=== PATIENT | female | born 1935 | race Caucasian/White ===

== ENCOUNTER 2017-11-26 09:28 | Inpatient (IN) | payer OTHER, MEDICARE ==
[~2017-11-26] VITALS: Ht 157.5 cm; Wt 111.6 kg
[~2017-11-26 09:28] MED LIST: ALBUTEROL 3 ML3 ML INH; ALBUTEROL SULFAT3 M1 INH/SOL; ALPRAZOLAM0.5 MG PO; APAP; ATROVENT 0.02%2.5 ML INH; ATROVENT HFA 121 PUF INH; Avelox PO; B COMPLEX1 TA1 PO; B12 1MG PE1000 MCG/M IM; CALCIUM600 M1 PO; CARDIZEM 180 M180 MG PO; CIPRO 500MG TA500 MG PO; CIPRO500 M1 PO; ECOTRIN81 MG PO; FISH OIL CONCEN1 SGL PO; HYDROCODON; JANUMET 1000 MG1 TAB PO; JANUMET 500 MG-1 TAB PO; K-DUR 20MEQ TA20 MEQ PO; KLOR-CON20 MEQ PO; LIALDA1.2 GM PO; LINZESS290 MC1 PO; LOPRESSOR 25MG25 MG PO; LOPRESSOR100 MG PO; LOPRESSOR50 MG PO; MAGNESIUM CITR100 MG PO; METAMUCIL3.4 GM/Do2 PO; METOPROLOL TART50 MG PO; MULTIVITAMIN1 TAB PO; Mucinex PO; NEURONTIN100 MG PO; OLANZAPINE5 MG PO; PREDNISONE 10MG10 MG PO; PREDNISONE5 M1 PO; PROTONIX 20MG T20 MG PO; PROTONIX 40MG T40 MG PO; ROBITUSSIN COU237 ML PO; SIMVASTATIN10 MG PO; Senokot S PO; TEMAZEPAM30 MG PO; ZOCOR10 MG PO; ZYPREXA5 MG PO
--- NOTE | 2017-11-26 09:56 | ED DYSPNEA/ASTHMA COMPLAINT ---
History of Present Illness General Chief Complaint: Dyspnea (COPD, CHF, Other) Stated Complaint: SOB Source: patient, family Exam Limitations: no limitations Allergies Coded Allergies: Penicillins (ITCHING 07/15/15) Reconcile Medications Apixaban (Eliquis) 5 MG TABLET 1 TAB PO BID BLOOD THINNER (Reported) Aspirin (Ecotrin*) 81 MG TABLET.DR 1 TAB PO PRN PAIN (Reported) Aspirin (Ecotrin*) 325 MG TABLET.DR 1 TAB PO PRN PAIN (Reported) Calcium Citrate (Unknown Strength) TABLET 630 MG PO QAM SUPPLEMENT (Reported) Diltiazem HCl (Diltiazem 24HR ER) 180 MG CAP.ER.24H 1 CAP PO DAILY HEART/BP ( Reported) Furosemide (Lasix) 20 MG TABLET 1 TAB PO SI DIURETIC (Reported) Furosemide (Lasix) 20 MG TABLET 1 TAB PO SI DIURETIC (Reported) Glipizide (Glipizide ER) 5 MG TAB.ER.24 1 TAB PO DAILY DM (Reported) Hydrocodone/Acetaminophen (Hydrocodon-Acetaminoph 7.5-325) 7.5 MG-325 MG TABLET 1 TAB PO Q6H PRN PAIN (Reported) Ibuprofen (Advil) 200 MG CAPSULE 1 TAB PO PRN PAIN (Reported) Ipratropium/Albuterol Sulfate (Iprat-Albut 0.5-3(2.5) MG/3 Ml) 0.5 MG-3 MG (2.5 MG BASE)/3 ML AMPUL.NEB 1 VIAL INH BID RESP. (Reported) Linaclotide (Linzess) 72 MCG CAPSULE 1 CAP PO DAILY GI (Reported) Magnesium Oxide (Magnesium) 250 MG TABLET 1 TAB PO 0800 SUPPLEMENT (Reported) Metoprolol Tartrate 25 MG TABLET 1 TAB PO BID HEART/BP (Reported) Multivitamin (Multi-Vitamin Daily) 1 EACH TABLET 1 TAB PO DAILY SUPPLEMENT ( Reported) Nitroglycerin 0.4 MG TAB.SUBL 1 TAB SL AD PRN CHEST PAIN (Reported) 1st sign of attack; may repeat every 5 minutes until relief; if pain persists after 3 tablets in 15 minutes, prompt medical att Olanzapine (Zyprexa) 5 MG TABLET 1 TAB PO DAILY MENTAL HEALTH (Reported) Pantoprazole Sodium 40 MG TABLET.DR 1 TAB PO 0930 GI (Reported) Pravastatin Sodium (Pravachol) 20 MG TABLET 1 TAB PO DAILY CHOLESTEROL ( Reported) Sitagliptin Phos/Metformin HCl (Janumet 50-1,000 MG Tablet) 50 MG-1,000 MG TABLET 1 TAB PO BID DM (Reported) Trazodone HCl 100 MG TABLET 1 TAB PO QHS DEPRESSION (Reported) Triage Note: 82 Y/O FEMALE C/O "NOT FEELING GOOD FOR A WHILE". PT REPORTS SOB, WORSE IN EVENING, AND LOSS OF APPETITE. DAUGHTER STATES PT HAS BEEN C/O NAUSEA IN THE EVENINGS "FOR WEEKS, MAYBE 2 OR 3". PT DENIES CURRENT PAIN. STATES SHE FEELS BETTER ONCE OXYGEN IS REPLACED VIA N/C. TAKEN TO ROOM 8 Triage Nurses Notes Reviewed? yes Onset: Abrupt Duration: day(s): (3), constant, continues in ED, getting worse Timing: recent history Severity: moderate, severe Activities at Onset: none Prior Episodes/Possible Cause: frequent episodes Associated Symptoms: weakness LMP (ages 10-50): post menopausal : No Patient currently breastfeeds: No HPI: 82-year-old female history of COPD, atrial fibrillation presents for evaluation of shortness of breath and weakness. Patient reports symptoms have been doing worse over the past few days. States that the shortness breath is worse during the night when she tries to lay back and also with any type of movement. She feels like she is getting weaker unable to ambulate without severe difficulty. She does report cough that is dry. She's been using her inhalers with mild improvement. She is on oxygen at home to a half liters. She also reports her legs are more swollen than usual. She denies chest pain hemoptysis abdominal pain. She does report some nausea but no vomiting subsided decreased appetite. No fevers. (Jose Luis Choudhary) Vital Signs & Intake/Output Vital Signs & Intake/Output Vital Signs Date Time Temp Pulse Resp B/P B/P Pulse O2 O2 Flow FiO2 Mean Ox Delivery Rate 11/26 1457 94 Nasal 3.0L Cannula 11/26 1311 97.9 73 16 124/60 93 Nasal 3.0L Cannula 11/26 1041 97 Nasal 3.0L Cannula 11/26 0950 93 Nasal 3.0L Cannula 11/26 0930 81 18 137/77 80 Room Air (Ed CAMPOS,[facility]) Past History Travel History Traveled to [place] past 21 day No Medical History Any Pertinent Medical History? see below for history Neurological: NONE EENT: NONE Cardiovascular: AFIB,SVT (no anticoagulation) Respiratory: COPD (2 L) Gastrointestinal: upper GI bleed Hepatic: NONE Renal: renal cell carcinoma s/p ablation of tumor Musculoskeletal: chronic back pain, osteoarthritis Psychiatric: [id number] Endocrine: diabetes Blood Disorders: NONE Cancer(s): breast cancer, renal cancer SUPPORT SERVICES TECH/Reproductive: NONE History of MRSA: Yes History of VRE: Yes History of CDIFF: No Surgical History Surgical History: CARDIAC ABLATION COLOSTOMY Psychosocial History Who do you live with Patient/Self Services at Home None What is your primary language Vietnamese Tobacco Use: Quit >30 days ago Family History Family History, If Any: FATHER (Father - [place] at 46.). Hx Contributory? No (Jose Luis Choudhary) Review of Systems Review of Systems Constitutional: Reports: no symptoms. EENTM: Reports: no symptoms. Respiratory: Reports: see HPI, short of breath, wheezing. Cardiovascular: Reports: no symptoms. GI: Reports: nausea. Genitourinary: Reports: no symptoms. Musculoskeletal: Reports: no symptoms. Skin: Reports: no symptoms. Neurological/Psychological: Reports: no symptoms. Hematologic/Endocrine: Reports: no symptoms. Immunologic/Allergic: Reports: no symptoms. All Other Systems: Reviewed and Negative (Jose Luis Choudhary) Physical Exam Physical Exam General Appearance: well developed/nourished, no apparent distress, alert, awake , obese Head: atraumatic, normal appearance Eyes: Bilateral: normal appearance, PERRL, EOMI. Ears, Nose, Throat: hearing grossly normal Neck: normal inspection, supple, full range of motion Respiratory: chest non-tender, no respiratory distress, quiet respiration, decreased breath sounds Cardiovascular: regular rate/rhythm, normal peripheral pulses Peripheral Pulses: 2+ radial (R), 2+ radial (L) Gastrointestinal: soft, non-tender Extremities: normal inspection, normal range of motion, no edema Neurologic/Psych: no motor/sensory deficits, awake, alert, oriented x 3 Skin: intact, normal color, warm/dry Lymphatic: no anterior cervical gregorio Core Measures ACS in differential dx? No CVA/TIA Diagnosis No Sepsis Present: No Sepsis Focused Exam Completed? No (Jose Luis Choudhary) Progress Differential Diagnosis: asthma, AMI, bronchitis, CHF, COPD, pulmonary embolism, pneumonia, pneumothorax, unstable angina Diagnostic Imaging: Viewed by Me: Radiology Read. Discussed w/RAD: Radiology Read. Radiology Impression: PATIENT: MENDEZ FELIX PRESENT AGE: 82 PATIENT ACCOUNT NO: [id number] : 33 LOCATION: [facility] ORDERING PHYSICIAN: Jose Luis REYNOLDS SERVICE DATE: 11/26/17 EXAM TYPE: RAD - XRY-PORTABLE CHEST XRAY EXAMINATION: XR PORTABLE CHEST CLINICAL INFORMATION: Shortness of breath and hypoxia. COMPARISON: 05/19/2017 TECHNIQUE: Portable AP 80 degrees upright view of the chest was obtained. FINDINGS: The cardiac silhouette is enlarged. There is unchanged elevation of the right hemidiaphragm. Lungs and pleural spaces are clear aside from minor linear atelectasis at the right base. IMPRESSION: No acute pulmonary process is seen. DICTATED BY: Saulo Rivera MD DATE/TIME DICTATED:11/26/171006 PHOTOGRAPHIC DEVELOPER AND PRINTER:ELICEO DATE/ TIME TRANSCRIBED:11/26/171006 CONFIDENTIAL, DO NOT COPY WITHOUT APPROPRIATE AUTHORIZATION. <Electronically signed in Other Vendor System> SIGNED BY: Saulo Rivera MD 11/26/17 1012 Initial ED EKG: A FLUTTER RATE CONTROLELD (Varinder REYNOLDS,Jose Luis) Plan of Care: Orders Procedure Date/time Status CBC WITHOUT DIFFERENTIAL 11/27 06 Active BASIC ELECTROLYTES PLUS BUN&CR 11/27 0600 Active Consistent Carbohydrate 2 11/26 D Active Turn and Reposition 11/26 1406 Active Skin Integrity Protocol 11/26 1406 Active Teach/Educate 11/26 1404 Active Pain Treatment and Response 11/26 1404 Active Nutritional Intake, Monitor 11/26 1404 Active Isolation 11/26 1404 Active Patient Care Conference 11/26 1404 Active Activity/Ambulation 11/26 1404 Active Pathway - chart 11/26 1248 Active Patient Data 11/26 1248 Active Code Status 11/26 1248 Active Patient Data 11/26 1216 Active ED Holding Orders 11/26 1121 Active Admit to inpatient 11/26 1121 Active Code Status 11/26 1121 Complete AEROSOL (GEN) 11/26 0954 Complete Add-on Test (ER Only) 11/26 0948 Active Telemetry/Rn Perinatal 11/26 0938 Complete TROPONIN LEVEL 11/26 0938 Complete PARTIAL THROMBOPLASTIN TIME 11/26 0938 Complete PROTHROMBIN TIME 11/26 0938 Complete MAGNESIUM 07/29 0938 Complete D-DIMER 11/26 937 Complete COMPREHENSIVE METABOLIC PANEL 11/26 937 Complete CBC WITHOUT DIFFERENTIAL 11/26 937 Complete B-TYPE NATRIURETIC PEP (BNP) 11/26 937 Complete Intake & Output 11/26 930 Active EKG 11/26 928 Active TRC EVALUATION (GEN) 11/26 UNK Active PEAK FLOW MEASUREMENT (GEN) 11/26 UNK Active OXYGEN SETUP (GEN) 11/26 UNK Active House Staff 11/26 UNK Active Weight 11/26 UNK Active VTE Mechanical Prophylaxis 11/26 UNK Active Vital Signs 11/26 UNK Active Intake & Output 11/26 UNK Complete FingerStick- Glucose 11/26 UNK Active PHARMACY COMMUNICATION FORM 11/26 UNK Active Current Medications Sig/Kevin Start time Last Medication Dose Stop Time Status Admin Aspirin Buffered 81 MG DAILY 11/27 899 AC (Ecotrin) Azithromycin 250 MG DAILY 11/27 899 AC (Zithromax) Calcium/Vitamin D 500 MG DAILY 11/27 899 AC (Oscal-D 500MG (Osyter Shell)) Diltiazem HCl 180 MG DAILY 11/27 899 AC (Cardizem CD) Furosemide 40 MG DAILY 11/27 899 AC (Lasix) Magnesium Oxide 400 MG DAILY 11/27 899 AC (Mag-Ox) Multivitamins 1 TAB DAILY 11/27 899 AC Therapeutic (Theragran-M Vitamins Tabs) Olanzapine 5 MG DAILY 11/27 899 AC (Zyprexa) Pravastatin Sodium 20 MG DAILY 11/27 899 AC (Pravachol) Omeprazole 40 MG DAILY AC 11/27 699 AC (Prilosec) Linaclotide 145 MCG DAILY@0600 11/27 599 AC (Linzess) Methylprednisolone 40 MG Q8 11/27 599 AC (Solumedrol) 11/30 2200 Apixaban 5 MG BID 11/26 2099 AC (Eliquis) Ipratropium [place] 2.5 ML BID 11/26 2099 AC (Atrovent) Metoprolol Tartrate 25 MG BID 11/26 2099 AC (Lopressor) Trazodone HCl 100 MG AT BEDTIME 11/26 2099 AC (Desyrel) Insulin Aspart 0 TIDAC 11/26 1700 AC (NovoLOG) Furosemide 20 MG 1630 11/26 1630 AC 11/26 (Lasix) 1601 Acetaminophen 650 MG Q6P PRN 11/26 1300 AC (Tylenol) Hydrocodone Bitart/ 1 TAB Q6P PRN 11/26 1300 AC Acetaminophen (Vicodin) Nitroglycerin 0.4 MG .EVERY 5 MIN PRN 11/26 1300 AC (Nitrostat) Non-Formulary 0 SEE ADMIN CRITERIA 11/26 1300 CAN Medication (NON FORMULARY) Laboratory Tests 11/26/17 1000: Anion Gap 10, Estimated GFR 53 L, BUN/Creatinine Ratio 10.0, Glucose 136 H, Calcium 8.3 L, Magnesium 1.5 L, Total Bilirubin 0.3, AST 22, ALT 32, Alkaline Phosphatase 58, Troponin I < 0.01, Fbh-D-Aaszinvnuwc Pept 778 H, Total Protein 5.8 L, Albumin 3.2 L, Globulin 2.6, Albumin/Globulin Ratio 1.2, PT 12.8 H, INR 1.17, APTT 34, D-Dimer High Sensitivty 312 H, CBC w Diff NO MAN DIFF REQ, RBC 4.11 L, MCV 89.2, MCH 29.1, MCHC 32.7 L, RDW 15.2 H, MPV 7.9, Gran % 68.7 , Lymphocytes % 21.0, Monocytes % 8.7, Eosinophils % 1.3, Basophils % 0.3, Absolute Granulocytes 3.1, Absolute Lymphocytes 1.0 L, Absolute Monocytes 0.4, Absolute Eosinophils 0.1, Absolute Basophils 0 Patient is here shortness of breath and weakness. She has a history of COPD. Her oxygen saturation at triage was 80% on room air. She usually requires 2-1/2 L is currently requiring 4 to maintain an oxygen saturation of 91%. She also has lower extremity edema. She becomes dyspneic on any type of exertion. DuoNeb Solu-Medrol Zithromax ordered. Lab work is unremarkable including a negative d-dimer negative troponin and EKG is unchanged. Chest x-ray is clear. Patient will be admitted as she is having an increased oxygen REQUIREMEMNT. Patient will require DuoNeb's, pulmonology, IV antibiotics, IV steroids, oxygen supplementation, serial labs, serial EKGs, case discussed with Dr. VALLES he agrees. (Varinder REYNOLDS,Jose Luis) (Ed CAMPOS,[facility]) Departure Departure Disposition: STILL A PATIENT Condition: Stable Clinical Impression Primary Impression: COPD exacerbation Referrals: Jenelle CAMPOS,Raimundo Manzo (PCP/Family) Departure Forms: Customer Survey General Discharge Information (Jose Luis Choudhary) Admission Note Spoke With: Helder CAMPOS,Rl Documentation of Exam: Documentation of any treatments & extenuating circumstances including Concerns Regarding Discharge (functional status, medication knowledge or non-compliance, living conditions, etc.) that warrant an admission rather than observation: Treatment for hypoxia and oxygen dependence. Multiple breathing treatments, steroids and antibiotics. PA/CATTLE DEALER Co-Sign Statement Statement: ED Attending supervision documentation- [X] I saw and evaluated the patient. I have also reviewed all the pertinent lab results and diagnostic results. I agree with the findings and the plan of care as documented in the PA's/CATTLE DEALER's documentation. [] I have reviewed the ED Record and agree with the PA's/CATTLE DEALER's documentation. [] Additions or exceptions (if any) to the PAs/CATTLE DEALER's note and plan are summarized below: 82-year-old female brought in for shortness of breath. Found to be hypoxic. The patient is on Eliquis because of a flutter which she still has on the EKG. No chest pain reported. The patient will need evaluation for shortness of breath and likely admission because of hypoxia. She is usually oxygen dependent. She has history of chronic lung disease, COPD. Otherwise speaking comfortably and no significant respiratory distress. (Ed CAMPOS,[facility]) Critical Care Note Critical Care Note Critical Care Time: non-applicable (Jose Luis Choudhary)
--- NOTE | 2017-11-26 10:12 | RADIOLOGY REPORT ---
EXAMINATION: XR PORTABLE CHEST CLINICAL INFORMATION: Shortness of breath and hypoxia. COMPARISON: 05/19/2017 TECHNIQUE: Portable AP 80 degrees upright view of the chest was obtained. FINDINGS: The cardiac silhouette is enlarged. There is unchanged elevation of the right hemidiaphragm. Lungs and pleural spaces are clear aside from minor linear atelectasis at the right base. IMPRESSION: No acute pulmonary process is seen.
[2017-11-26 10:17] LABS: ABSOLUTE BASOPHIL COUNT 0 /CUMM (0.0-0.2); ABSOLUTE EOSINOPHIL COUNT 0.1 /CUMM (0.0-0.7); ABSOLUTE GRANULOCYTE CT 3.1 /CUMM (1.4-6.5); ABSOLUTE MONOCYTE COUNT 0.4 /CUMM (0.10-0.60); BASOPHIL % 0.3 % (0.0-2.0); EOSINOPHIL % 1.3 % (0-5); GRANULOCYTE % 68.7 % (42.2-75.2); HEMATOCRIT 36.7 % (37-47); MEAN CORPUSCULAR HGB 29.1 PG (27.0-31.0); MEAN CORPUSCULAR HGB CONC 32.7 G/DL (33.0-37.0); MEAN CORPUSCULAR VOLUME 89.2 FL (81.0-99.0); MEAN PLATELET VOLUME 7.9 FL (7.4-10.4); PLATELET COUNT 194 /CUMM (130-400); RBC DISTRIBUTION WIDTH 15.2 % (11.5-14.5); RED BLOOD CELL CT 4.11 /CUMM (4.20-5.40); WHITE BLOOD CELL COUNT 4.5 /CUMM (4.8-10.8)
[2017-11-26 10:45] LABS: PT 12.8 SEC (9.4-12.5); PTT 34 SEC (25-37)
[2017-11-26] MEDS ORDERED: ELIQUIS5 M1 PO (12:09)
[2017-11-26] MEDS ORDERED: METOPROLOL TART25 M1 PO (12:10)
[2017-11-26] MEDS ORDERED: NITROGLYCERIN0.4 M1 SL (12:10)
[2017-11-26] MEDS ORDERED: DILTIAZEM 24HR180 MG PO (12:11)
[2017-11-26] MEDS ORDERED: LASIX20 M1 PO ×2 (12:13→12:15)
[2017-11-26] MEDS ORDERED: TRAZODONE HCL100 M1 PO (12:15)
[2017-11-26] MEDS ORDERED: ZYPREXA5 M1 PO (12:16)
[2017-11-26] MEDS ORDERED: PANTOPRAZOLE SO40 M1 PO (12:16)
[2017-11-26] MEDS ORDERED: GLIPIZIDE ER5 M1 PO (12:17)
--- NOTE | 2017-11-26 12:17 | History & Physical ---
Scar CAMPOS,[facility] 11/26/17 1217: General Information and HPI History of Present Illness: Ms. Akins is an 82-year-old female with past medical history of atrial fibrillation on apixaban followed by Dr. Diamond, COPD on 2.5 L nasal cannula followed by Dr. Morel, upper GI bleed, renal cell carcinoma, diabetes mellitus, and breast cancer who presents with complaints of shortness of breath. The patient says that for the past week she has been progressively short of breath. She has further noticed gaining some weight and lower extremity edema. She says she has not been taking her furosemide as prescribed because she does not want to get up to go to the bathroom and has trouble getting off the couch. She has home aides that come twice a week but otherwise lives alone. She furthe reports some chest pain that comes and goes and occurs both on exertion and at rest. The episodes are usually sharp and lasts about 20 minutes. She had a recent echocardiogram that was apparently good. She denies any cough, sweats, urinary issues. She is a former smoker, drinks alcohol socially, denies recreational drug abuse. Allergies/Medications Allergies: Coded Allergies: Penicillins (ITCHING 07/15/15) Home Med list Apixaban (Eliquis) 5 MG TABLET 1 TAB PO BID BLOOD THINNER (Reported) Aspirin (Ecotrin*) 81 MG TABLET.DR 1 TAB PO PRN PAIN (Reported) Aspirin (Ecotrin*) 325 MG TABLET.DR 1 TAB PO PRN PAIN (Reported) Calcium Citrate (Unknown Strength) TABLET 630 MG PO QAM SUPPLEMENT (Reported) Diltiazem HCl (Diltiazem 24HR ER) 180 MG CAP.ER.24H 1 CAP PO DAILY HEART/BP ( Reported) Furosemide (Lasix) 20 MG TABLET 1 TAB PO SI DIURETIC (Reported) Furosemide (Lasix) 20 MG TABLET 1 TAB PO SI DIURETIC (Reported) Glipizide (Glipizide ER) 5 MG TAB.ER.24 1 TAB PO DAILY DM (Reported) Hydrocodone/Acetaminophen (Hydrocodon-Acetaminoph 7.5-325) 7.5 MG-325 MG TABLET 1 TAB PO Q6H PRN PAIN (Reported) Ibuprofen (Advil) 200 MG CAPSULE 1 TAB PO PRN PAIN (Reported) Ipratropium/Albuterol Sulfate (Iprat-Albut 0.5-3(2.5) MG/3 Ml) 0.5 MG-3 MG (2.5 MG BASE)/3 ML AMPUL.NEB 1 VIAL INH BID RESP. (Reported) Linaclotide (Linzess) 72 MCG CAPSULE 1 CAP PO DAILY GI (Reported) Magnesium Oxide (Magnesium) 250 MG TABLET 1 TAB PO 0800 SUPPLEMENT (Reported) Metoprolol Tartrate 25 MG TABLET 1 TAB PO BID HEART/BP (Reported) Multivitamin (Multi-Vitamin Daily) 1 EACH TABLET 1 TAB PO DAILY SUPPLEMENT ( Reported) Nitroglycerin 0.4 MG TAB.SUBL 1 TAB SL AD PRN CHEST PAIN (Reported) 1st sign of attack; may repeat every 5 minutes until relief; if pain persists after 3 tablets in 15 minutes, prompt medical att Olanzapine (Zyprexa) 5 MG TABLET 1 TAB PO DAILY MENTAL HEALTH (Reported) Pantoprazole Sodium 40 MG TABLET.DR 1 TAB PO 0930 GI (Reported) Pravastatin Sodium (Pravachol) 20 MG TABLET 1 TAB PO DAILY CHOLESTEROL ( Reported) Sitagliptin Phos/Metformin HCl (Janumet 50-1,000 MG Tablet) 50 MG-1,000 MG TABLET 1 TAB PO BID DM (Reported) Trazodone HCl 100 MG TABLET 1 TAB PO QHS DEPRESSION (Reported) Past History Travel History Traveled to [place] past 21 day No Medical History Neurological: NONE EENT: NONE Cardiovascular: AFIB,SVT (no anticoagulation) Respiratory: COPD (2 L) Gastrointestinal: upper GI bleed Hepatic: NONE Renal: renal cell carcinoma s/p ablation of tumor Musculoskeletal: chronic back pain, osteoarthritis Psychiatric: [id number] Endocrine: diabetes Blood Disorders: NONE Cancer(s): breast cancer, renal cancer SAND SIFTER/Reproductive: NONE History of MRSA: Yes History of VRE: Yes History of CDIFF: No Surgical History Surgical History: CARDIAC ABLATION COLOSTOMY Past Family/Social History Family History Relations & Conditions if any FATHER (Father - [place] at 46.). Psychosocial History Services at Home: None Review of Systems Review of Systems Constitutional: Reports: no symptoms. EENTM: Reports: no symptoms. Cardiovascular: Reports: see HPI. Respiratory: Reports: see HPI. GI: Reports: no symptoms. Genitourinary: Reports: no symptoms. Musculoskeletal: Reports: no symptoms. Skin: Reports: no symptoms. Neurological/Psychological: Reports: no symptoms. Hematologic/Endocrine: Reports: no symptoms. Immunologic/Allergic: Reports: no symptoms. All Other Systems: Reviewed and Negative Exam & Diagnostic Data Last 24 Hrs of Vital Signs/I&O Vital Signs Date Time Temp Pulse Resp B/P B/P Pulse O2 O2 Flow FiO2 Mean Ox Delivery Rate 11/26 1041 97 Nasal 3.0L Cannula 11/26 0950 93 Nasal 3.0L Cannula 11/26 0930 81 18 137/77 80 Room Air Intake & Output 11/26 1600 11/26 0800 11/26 0000 Intake Total Output Total Balance Patient 111.13 kg Weight Weight Reported by Patient Measurement Method Physical Exam General Appearance Alert, Oriented X3, Cooperative, No Acute Distress Cardiovascular Regular Rate Lungs mild crackles Abdomen Normal Bowel Sounds, Soft, No Tenderness, ostomy site [id number] appearing Extremities nonpitting edema bilaterally Last 24 Hrs of Labs/Michael: Laboratory Tests 11/26/17 1000: Anion Gap 10, Estimated GFR 53 L, BUN/Creatinine Ratio 10.0, Glucose 136 H, Calcium 8.3 L, Magnesium 1.5 L, Total Bilirubin 0.3, AST 22, ALT 32, Alkaline Phosphatase 58, Troponin I < 0.01, Hbz-Q-Cycmpbbnabh Pept 778 H, Total Protein 5.8 L, Albumin 3.2 L, Globulin 2.6, Albumin/Globulin Ratio 1.2, PT 12.8 H, INR 1.17, APTT 34, D-Dimer High Sensitivty 312 H, CBC w Diff NO MAN DIFF REQ, RBC 4.11 L, MCV 89.2, MCH 29.1, MCHC 32.7 L, RDW 15.2 H, MPV 7.9, Gran % 68.7 , Lymphocytes % 21.0, Monocytes % 8.7, Eosinophils % 1.3, Basophils % 0.3, Absolute Granulocytes 3.1, Absolute Lymphocytes 1.0 L, Absolute Monocytes 0.4, Absolute Eosinophils 0.1, Absolute Basophils 0 Assessment/Plan Assessment: Ms. Akins is an 82-year-old female with past medical history of atrial fibrillation on apixaban followed by Dr. Diamond, COPD on 2.5 L nasal cannula followed by Dr. Morel, upper GI bleed, renal cell carcinoma, diabetes mellitus, and breast cancer who presents with complaints of shortness of breath. On presentation, vital signs were afebrile, HR 81, RR 18, BP 137/77, saturating 80% on room air.. Laboratories were significant for white blood cell count 4.5, chloride 96, carbon dioxide 34, glucose 136, calcium 8.3, magnesium 1.5, albumin 3.2, BNP 778, LFTs negative, INR 1.17, d-dimer 312. Chest x-ray showed no acute process. She will be admitted to general medicine and treated for the following problems: 1. COPD exacerbation 2. Chronic hypoxemic respiratory failure #COPD exacerbation: Patient presents with shortness of breath with history of COPD followed by Dr. Morel. Chest x-ray does not show any infiltrate but patient may have atypical versus viral infection precipitating an exacerbation. Of note, she was hypoxic off oxygen, which is unsurprising given that she is oxygen dependent. She has also not been taking her furosemide recently, which may exacerbate her pulmonary symptoms. She does not seem to be in acute CHF at this time. -Resume home furosemide -TRC nebs -Methylprednisone 40 mg every 8 hours, taper as necessary -Consider pulmonology consult -Strict ins and outs -Daily weights -Azithromycin -PT consult #Chronic medical problems -Continue other home medications DVT prophylaxis with apixaban Consistent carbohydrate two diet DNR/DNI As Ranked By This Provider Problem List: 1. COPD exacerbation Core Measures/Misc (01/15) Acute Coronary Syndrome ACS Diagnosis: No Congestive Heart Failure Congestive Heart Failure Diagnosis No Cerebrovascular Accident CVA/TIA Diagnosis: No VTE (View Protocol) VTE Risk Factors Age>40 No Mechanical VTE Prophylaxis d/t N/A MechProphylax Ordered No VTE Pharm Prophylaxis d/t NA PharmProphylax ordered Sepsis (View protocol) Sepsis Present: No If YES complete Sepsis Event Note If YES complete Sepsis Event Note Helder CAMPOS,Amir 11/26/17 1610: Core Measures/Misc (01/15) Sepsis (View protocol) If YES complete Sepsis Event Note If YES complete Sepsis Event Note Attending MD Review Statement Attending Statement Attending MD Statement: examined this patient, discuss w/resident/PA/ENGRAVER AUTOMATIC, agreed w/resident/PA/ENGRAVER AUTOMATIC, reviewed EMR data (avail) Attending Assessment/Plan: Ms. Akins is an 82-year-old female with past medical history of atrial fibrillation on apixaban followed by Dr. Diamond, COPD on 2.5 L nasal cannula followed by Dr. Morel, upper GI bleed, renal cell carcinoma, diabetes mellitus, and breast cancer who presents with complaints of shortness of breath. --being tx for COPD exacerbation --f/u Pulm consult
[2017-11-26] MEDS ORDERED: JANUMET 50-1,01 EACH PO (12:18)
[2017-11-26] MEDS ORDERED: HYDROCODON-ACE1 EAC3 PO (12:18)
[2017-11-26] MEDS ORDERED: LINZESS72 MCG PO (12:19)
[2017-11-26] MEDS ORDERED: PRAVACHOL20 M2 PO (12:19)
[2017-11-26] MEDS ORDERED: IPRAT-ALBUT 0.5-3 ML INH (12:20)
[2017-11-26] MEDS ORDERED: ASPIRIN EC325 M2 PO (12:20)
[2017-11-26] MEDS ORDERED: ASPIRIN EC81 M1 PO (12:20)
[2017-11-26] MEDS ORDERED: ADVIL200 M1 PO (12:22)
[2017-11-26] MEDS ORDERED: CALCIUM CITRAT250 M1 PO (12:22)
[2017-11-26] MEDS ORDERED: MULTI-VITAMIN1 EACH PO (12:23)
[2017-11-26] MEDS ORDERED: MAGNESIUM250 M2 PO (12:23)
[2017-11-26 14:00] VITALS: BP 110/70
--- NOTE | 2017-11-26 15:48 | Admission Certification ---
Admission Certification Certification Statement - As attending physician, I certify that at the time of - admission, based on clinical presentation, severity of - symptoms, need for further diagnostic testing and - therapeutic interventions, and risk of adverse outcomes - without in-hospital treatment, in my clinical assessment, - this patient requires an acute hospital stay for a minimum - of two nights or longer. I have also considered psychsocial - factors such as support system, advanced age, financial - issues, cognitive issues, and failed out-patient treatments, - past re-admission history, safety of patient, and lack of - compliance as applicable. Specific rationale supporting this admission is: SOB exacerbation likely due to COPD
[2017-11-26 21:38] VITALS: BP 110/72
[2017-11-27 06:52] VITALS: BP 124/66
--- NOTE | 2017-11-27 08:10 | PN- Housestaff ---
See Addendum Subjective Follow-up For: copd exacerbation Complaints: SOB overnight at 3am Subjective: Patient reports SOB acute episode overnight. She called the RN to bedside and received a breathing treatment. She felt better after this treatment. Denies any sx this morning including fever, chills, n/v/d, chest pain, SOB, abdominal pain. Review of Systems Constitutional: Reports: see HPI. Objective Last 24 Hrs of Vital Signs/I&O Vital Signs Date Time Temp Pulse Resp B/P B/P Pulse O2 O2 Flow FiO2 Mean Ox Delivery Rate 11/27 0927 81 124/66 11/27 0838 91 Nasal 4.0L Cannula 11/27 0652 97.5 81 20 124/66 94 11/27 0337 92 Nasal 4.0L Cannula 11/27 0000 Nasal 4.0L Cannula 11/26 2152 83 110/72 11/26 2138 98.0 83 20 110/72 95 Nasal 3.0L Cannula 11/26 1833 Nasal 4.0L Cannula 11/26 1457 94 Nasal 3.0L Cannula 11/26 1400 98.0 80 20 110/70 94 Nasal 3.0L Cannula 11/26 1311 97.9 73 16 124/60 93 Nasal 3.0L Cannula 11/26 1041 97 Nasal 3.0L Cannula Intake & Output 11/27 1600 11/27 0800 11/27 0000 Intake Total 600 Output Total Balance 600 Intake, Oral 600 Number 1 Bowel Movements Output, Urine Patient 250 lb Weight Weight Bed scale Measurement Method Physical Exam General Appearance: Alert, Oriented X3, Cooperative, No Acute Distress Skin: No Rashes Skin Temp/Moisture Exam: Warm/Dry HEENT: Atraumatic, PERRLA Neck: Supple Cardiovascular: Regular Rate, Normal S1, Normal S2, No Murmurs Lungs: decreased breath sounds left base. Expiratory wheezes throughout. Abdomen: Normal Bowel Sounds, Soft, No Tenderness, stoma in place with bag; pink and viable; stool in bag; no surrounding erythema. Midline healed ex lap scar. Extremities: No Tenderness/Swelling Assessment/Plan Assessment: 82-year-old female with past medical history of atrial fibrillation on apixaban followed by Dr. Diamond, COPD on 2.5 L nasal cannula followed by Dr. Morel, upper GI bleed, renal cell carcinoma, diabetes mellitus, and breast cancer who presents with complaints of shortness of breath. On presentation, vital signs were afebrile, HR 81, RR 18, BP 137/77, saturating 80% on room air.. Laboratories were significant for white blood cell count 4.5, chloride 96, carbon dioxide 34, glucose 136, calcium 8.3, magnesium 1.5, albumin 3.2, BNP 778, LFTs negative, INR 1.17, d-dimer 312. Chest x-ray showed no acute process. She will be admitted to general medicine and treated for the following problems: 1. COPD exacerbation 2. Hypomagnesemia 3. DM #COPD exacerbation: Patient presents with shortness of breath with history of COPD followed by Dr. Morel. Chest x-ray does not show any infiltrate but patient may have atypical versus viral infection precipitating an exacerbation. Of note, she was hypoxic off oxygen, which is unsurprising given that she is oxygen dependent. She has also not been taking her furosemide recently, which may exacerbate her pulmonary symptoms. She does not seem to be in acute CHF at this time. -Lasix 40mg daily IV -TRC nebs -Methylprednisone 40 mg every 8 hours: start PO prednisone 30mg daily today -Dr. Morel following -Strict ins and outs -Insentive Spirometry -Daily weights -Azithromycin: discontinued per Pulm input -PT consult #Hypomagnesemia -monitor and replete #Chronic medical problems -Continue other home medications DVT prophylaxis with apixaban Consistent carbohydrate two diet DNR/DNI Problem List: 1. COPD exacerbation 2. Hypoxia Pain Ratin Pain Location: none Pain Goal: Remain pain free Pain Plan: see a/p Tomorrow's Labs & Rationales: bep magnesium
[2017-11-27 09:24] LABS: ABSOLUTE BASOPHIL COUNT 0 /CUMM (0.0-0.2); ABSOLUTE EOSINOPHIL COUNT 0 /CUMM (0.0-0.7); ABSOLUTE LYMPH COUNT 0.8 /CUMM (1.2-3.4); ABSOLUTE MONOCYTE COUNT 0.3 /CUMM (0.10-0.60); BASOPHIL % 0.2 % (0.0-2.0); EOSINOPHIL % 0 % (0-5); HEMATOCRIT 34.5 % (37-47); MEAN CORPUSCULAR HGB 29.3 PG (27.0-31.0); MEAN CORPUSCULAR VOLUME 88.7 FL (81.0-99.0); MEAN PLATELET VOLUME 8.2 FL (7.4-10.4); PLATELET COUNT 177 /CUMM (130-400); RED BLOOD CELL CT 3.88 /CUMM (4.20-5.40); WHITE BLOOD CELL COUNT 5.2 /CUMM (4.8-10.8)
[2017-11-27 14:49] VITALS: BP 132/70
--- NOTE | 2017-11-27 16:01 | Cons- Pulmonary ---
General Information and HPI Consulting Request Date of Consult: 11/27/17 Requested By: med team History of Present Illness: Ms. Akins is an 82-year-old female with past medical history of atrial fibrillation on apixaban followed by Dr. Diamond, COPD on 2.5 L nasal cannula followed by me as out patient, upper GI bleed, renal cell carcinoma, diabetes mellitus, and breast cancer who presents with complaints of shortness of breath. The patient says that for the past week she has been progressively short of breath. She has further noticed gaining some weight and lower extremity edema. She says she has not been taking her furosemide as prescribed because she does not want to get up to go to the bathroom and has trouble getting off the couch. She has home aides that come twice a week but otherwise lives alone. She further reports some chest pain that comes and goes and occurs both on exertion and at rest. The episodes are usually sharp and lasts about 20 minutes. She had a recent echocardiogram that was apparently good. She denies any cough, sweats, urinary issues. She is a former smoker, drinks alcohol socially, denies recreational drug abuse. Reports: no symptoms. EENTM: Reports: no symptoms. Cardiovascular: Reports: see HPI. Respiratory: Reports: see HPI. GI: Reports: no symptoms. Genitourinary: Reports: no symptoms. Musculoskeletal: Reports: no symptoms. Skin: Reports: no symptoms. Neurological/Psychological: Reports: no symptoms. Hematologic/Endocrine: Reports: no symptoms. Immunologic/Allergic: Reports: no symptoms. All Other Systems: Reviewed and Negative Allergies/Medications Allergies: Coded Allergies: Penicillins (ITCHING 07/15/15) Home Med List: Apixaban (Eliquis) 5 MG TABLET 1 TAB PO BID BLOOD THINNER (Reported) Aspirin (Ecotrin*) 81 MG TABLET.DR 1 TAB PO PRN PAIN (Reported) Aspirin (Ecotrin*) 325 MG TABLET.DR 1 TAB PO PRN PAIN (Reported) Calcium Citrate (Unknown Strength) TABLET 630 MG PO QAM SUPPLEMENT (Reported) Diltiazem HCl (Diltiazem 24HR ER) 180 MG CAP.ER.24H 1 CAP PO DAILY HEART/BP ( Reported) Furosemide (Lasix) 20 MG TABLET 1 TAB PO SI DIURETIC (Reported) Furosemide (Lasix) 20 MG TABLET 1 TAB PO SI DIURETIC (Reported) Glipizide (Glipizide ER) 5 MG TAB.ER.24 1 TAB PO DAILY DM (Reported) Hydrocodone/Acetaminophen (Hydrocodon-Acetaminoph 7.5-325) 7.5 MG-325 MG TABLET 1 TAB PO Q6H PRN PAIN (Reported) Ibuprofen (Advil) 200 MG CAPSULE 1 TAB PO PRN PAIN (Reported) Ipratropium/Albuterol Sulfate (Iprat-Albut 0.5-3(2.5) MG/3 Ml) 0.5 MG-3 MG (2.5 MG BASE)/3 ML AMPUL.NEB 1 VIAL INH BID RESP. (Reported) Linaclotide (Linzess) 72 MCG CAPSULE 1 CAP PO DAILY GI (Reported) Magnesium Oxide (Magnesium) 250 MG TABLET 1 TAB PO 0800 SUPPLEMENT (Reported) Metoprolol Tartrate 25 MG TABLET 1 TAB PO BID HEART/BP (Reported) Multivitamin (Multi-Vitamin Daily) 1 EACH TABLET 1 TAB PO DAILY SUPPLEMENT ( Reported) Nitroglycerin 0.4 MG TAB.SUBL 1 TAB SL AD PRN CHEST PAIN (Reported) 1st sign of attack; may repeat every 5 minutes until relief; if pain persists after 3 tablets in 15 minutes, prompt medical att Olanzapine (Zyprexa) 5 MG TABLET 1 TAB PO DAILY MENTAL HEALTH (Reported) Pantoprazole Sodium 40 MG TABLET.DR 1 TAB PO 0930 GI (Reported) Pravastatin Sodium (Pravachol) 20 MG TABLET 1 TAB PO DAILY CHOLESTEROL ( Reported) Sitagliptin Phos/Metformin HCl (Janumet 50-1,000 MG Tablet) 50 MG-1,000 MG TABLET 1 TAB PO BID DM (Reported) Trazodone HCl 100 MG TABLET 1 TAB PO QHS DEPRESSION (Reported) Review of Systems Review of Systems Constitutional: Reports: see HPI. Past History Travel History Traveled to [place] past 21 day No Medical History Blood Transfusion Hx: Yes Neurological: NONE EENT: NONE Cardiovascular: AFIB,SVT (no anticoagulation) Respiratory: COPD (2 L) Gastrointestinal: diverticulitis, upper GI bleed Hepatic: NONE Renal: renal cell carcinoma s/p ablation of tumor Musculoskeletal: chronic back pain, osteoarthritis Psychiatric: anxiety Endocrine: diabetes Blood Disorders: NONE Cancer(s): breast cancer, renal cancer VERTICAL BORER/Reproductive: NONE Surgical History Surgical History: CARDIAC ABLATION COLOSTOMY Family History Relations & Conditions If Any: FATHER (Father - [place] at 46.). Psychosocial History Where Do You Live? Home Services at Home: None Smoking Status: Former Smoker Exam & Diagnostic Data Last 24 Hrs of Vital Signs/I&O Vital Signs Date Time Temp Pulse Resp B/P B/P Pulse O2 O2 Flow FiO2 Mean Ox Delivery Rate 11/27 1449 98.7 75 20 132/70 97 Nasal 4.0L Cannula 11/27 0927 81 124/66 11/27 0838 91 Nasal 4.0L Cannula 11/27 0800 95 Nasal 4.0L Cannula 11/27 0652 97.5 81 20 124/66 94 11/27 0337 92 Nasal 4.0L Cannula 11/27 0000 Nasal 4.0L Cannula 11/26 2152 83 110/72 11/26 2138 98.0 83 20 11072 95 Nasal 3.0L Cannula 11/26 1833 Nasal 4.0L Cannula Intake & Output 11/27 1600 11/27 0800 11/27 0000 Intake Total 800 600 Output Total 100 Balance 700 600 Intake, Oral 800 600 Number 1 Bowel Movements Output, Stool 100 Output, Urine Patient 250 lb Weight Weight Bed scale Measurement Method Last 48 Hrs of Labs/Michael: Laboratory Tests 11/27/17 0612: Anion Gap 10, Estimated GFR > 60, BUN/Creatinine Ratio 18.8, CBC w Diff NO MAN DIFF REQ, RBC 3.88 L, MCV 88.7, MCH 29.3, MCHC 33.0, RDW 15.0 H, MPV 8.2, Gran % 78.0 H, Lymphocytes % 15.8 L, Monocytes % 6.0, Eosinophils % 0, Basophils % 0.2, Absolute Granulocytes 4.0, Absolute Lymphocytes 0.8 L, Absolute Monocytes 0.3, Absolute Eosinophils 0, Absolute Basophils 0 11/26/17 1000: Anion Gap 10, Estimated GFR 53 L, BUN/Creatinine Ratio 10.0, Glucose 136 H, Calcium 8.3 L, Magnesium 1.5 L, Total Bilirubin 0.3, AST 22, ALT 32, Alkaline Phosphatase 58, Troponin I < 0.01, Emp-Q-Absicpusaom Pept 778 H, Total Protein 5.8 L, Albumin 3.2 L, Globulin 2.6, Albumin/Globulin Ratio 1.2, PT 12.8 H, INR 1.17, APTT 34, D-Dimer High Sensitivty 312 H, CBC w Diff NO MAN DIFF REQ, RBC 4.11 L, MCV 89.2, MCH 29.1, MCHC 32.7 L, RDW 15.2 H, MPV 7.9, Gran % 68.7 , Lymphocytes % 21.0, Monocytes % 8.7, Eosinophils % 1.3, Basophils % 0.3, Absolute Granulocytes 3.1, Absolute Lymphocytes 1.0 L, Absolute Monocytes 0.4, Absolute Eosinophils 0.1, Absolute Basophils 0 Assessment/Plan Impression/Plan: General Appearance Alert, Oriented X3, Cooperative, No Acute Distress Cardiovascular Regular Rate Lungs mild crackles Abdomen Normal Bowel Sounds, Soft, No Tenderness, ostomy site [id number] appearing Extremities nonpitting edema bilaterally Ms. Akins is an 82-year-old female with past medical history of atrial fibrillation on apixaban followed by Dr. Abdi, chronic obstructive and restrictive lung disease on 2.5 L nasal cannula, chronic rt middle lobe syndrome , Mild ILD, history of upper GI bleed, renal cell carcinoma, diabetes mellitus, and h/o stage 1 breast cancer who presents with complaints of shortness of breath, in the setting of stopping her lasix lately * Mod to severe copd with mild ild with chronic rt middle lobe syndrome, now with minimal wheezing today, and her recent deterioration is prob due to stopping her lasix. No evidence of sig copde * Chronic pedal edema with chronic corpulmonale with mild fluid overload * Significant history of hiatal hernia esophageal diverticulum with chronic right middle lobe syndrome with significant aspiration on and off/ Pt is probably having sig gerd with recurrent aspirations, * Previous history of breast cancers, renal cell carcinoma status post ablation no evidence of recurrence so far * Diabetes/hypertension/hyperlipidemia/anxiety stable * GERD, chronic pain syndrome, significant malunion of the lower extremities * Previous history of volvulus requiring partial colectomy colostomy with ventral hernia with chronic abdominal discomfort * Chronic recurrent pna in the right side with mild bronchial narrowing with previous chest ct RECOMMENDATION Resume lasix and use IV lasix daily 40 mg and keep potassium more than 4 Dc iv steroids and start po prednisone 30 mg daily DC abx Cont out pt meds PRN nebs Incentive spirometry Follow sugars slolwy Cont anticoag and calcium channel valorie Cont mag Keep hob up Check echo WIll follow closely Consult Acknowledgment - Thank you for your consult request.
[2017-11-27 22:26] VITALS: BP 134/62
--- NOTE | 2017-11-28 05:32 | PN- Housestaff ---
See Addendum Fredy Obrien 11/28/17 0531: Subjective Follow-up For: Shortness of breath COPD exacerbation Pulmonary congestion due to noncompliance with furosemide Subjective: She complained about frequent urination during the night which caused poor sleep. Review of Systems Constitutional: Reports: see HPI. EENTM: Reports: no symptoms. Cardiovascular: Reports: edema. Respiratory: Reports: short of breath, wheezing. Objective Last 24 Hrs of Vital Signs/I&O Vital Signs Date Time Temp Pulse Resp B/P B/P Pulse O2 O2 Flow FiO2 Mean Ox Delivery Rate 11/29 1332 98.6 79 18 100/60 98 Nasal 3.0L Cannula 11/29 0924 78 132/78 11/29 0850 94 Nasal 4.0L Cannula 11/29 0800 22 95 Nasal 3.0L Cannula 11/29 0800 95 Nasal 3.0L Cannula 11/29 0643 98.2 80 20 130/80 95 Room Air 11/29 0000 95 Nasal 3.0L Cannula 11/28 2114 98.5 87 18 118/68 95 Nasal 4.0L Cannula 11/28 2113 87 118/68 11/28 1943 94 Nasal 4.0L Cannula 11/28 1600 Nasal 3.0L Cannula Intake & Output 11/29 1600 11/29 0800 08 0000 Intake Total 850 480 480 Output Total 805 550 10 Balance 45 -70 470 Intake, IV 50 Intake, Oral 800 480 480 Number 0 0 Bowel Movements Output, Stool 30 10 Output, Urine 775 550 Patient 245 lb Weight Weight Bed scale Measurement Method Physical Exam General Appearance: Alert, Oriented X3, Cooperative, No Acute Distress Skin: No Rashes Skin Temp/Moisture Exam: Warm/Dry Sepsis Skin Exam (color): Normal for Ethnicity HEENT: Atraumatic Neck: Supple, No LAD Cardiovascular: Regular Rate, Normal S1, Normal S2 Lungs: Diminished BS with mild expiratory wheeze Abdomen: Normal Bowel Sounds, Soft, No Tenderness Neurological: Normal Speech Extremities: 2+ pitting edema, in lower extermitis Vascular: Normal Pulses, Pulses Symmetrical Assessment/Plan Assessment: Impression/Plan: COPD exacerbation: Comparing to yesterday the patient is clinically improved. Plan is to continue TRC nebulizers and prednisone Acute on chronic hypoxic respiratory failure: She still needs more oxygen than her home baseline (4L) CHF/cor pulmonale: Lower extremity edema and bibasilar crackles are decreased with Lasix, apparently the patient is not compliant with diuretics because she has to use the bathroom frequently. Plan is to give 1 single dose of Lasix 40 mg in the morning and follow-up with respiration, daily weights, intake and output, fluid balance Diabetes mellitus: She is diabetic and is taking steroids, she has high blood sugars Sliding scale insulin, Accu-Cheks, Deconditioning: Since the patient has multiple medical problems, she needs physical therapy consult Problem List: 1. Acute respiratory failure with hypoxia 2. COPD (chronic obstructive pulmonary disease) 3. GERD (gastroesophageal reflux disease) 4. Diabetes mellitus 5. Colostomy 6. Renal neoplasm Pain Ratin Pain Location: NA Pain Goal: Remain pain free (NA) Pain Plan: NA Tomorrow's Labs & Rationales: BUCK Thurston MD,Bernard 11/28/17 1627: Attending MD Review Statement Attending Statement Attending MD Statement: examined this patient, discuss w/resident/PA/COMPOSING MACHINE OPERATOR/TENDER, agreed w/resident/PA/COMPOSING MACHINE OPERATOR/TENDER, reviewed EMR data (avail), discussed with nursing, discussed with case mgmt, amended to note Attending Assessment/Plan: S: The patient feels slightly better today- poor sleep due to urinating frequently post IV Lasix yesterday afternoon. Breathing improved. O: VS: Vital Signs Date Time Temp Pulse Resp B/P B/P Pulse O2 O2 Flow FiO2 Mean Ox Delivery Rate 11/28 1411 97.5 80 20 128/60 93 Nasal 4.0L Cannula 11/28 1007 94 Nasal 3.0L Cannula 11/28 0932 88 134/70 11/28 0833 93 Nasal 4.0L Cannula 11/28 0800 94 Nasal 3.0L Cannula 11/28 0655 98.3 88 20 134/70 98 Nasal 4.0L Cannula 11/28 0000 93 Nasal 4.0L Cannula 11/27 2226 97.8 78 18 134/62 92 Nasal 4.0L Cannula 11/27 1959 134/62 11/27 1905 92 Nasal 4.0L Cannula Intake & Output 11/28 1600 11/28 0800 11/28 0000 Intake Total 400 200 120 Output Total 400 600 50 Balance 0 -400 70 Intake, IV 0 Intake, Oral 400 200 120 Output, Stool 50 Output, Urine 400 600 Patient 246 lb Weight Weight Bed scale Measurement Method Current Medications Sig/Kevin Start time Last Medication Dose Route Stop Time Status Admin Acetaminophen 650 MG Q6P PRN 11/26 1300 AC PO Albuterol Sulfate 3 ML TID 11/26 2100 AC 11/28 INH 1420 Apixaban 5 MG BID 11/26 2100 AC 11/28 PO 0932 Aspirin Buffered 81 MG DAILY 11/27 0900 AC 11/27 PO 0926 Azithromycin 250 MG DAILY 11/27 09 AC 11/28 PO 0932 Calcium/Vitamin D 500 MG DAILY 11/27 09 AC 11/28 PO 0932 Diltiazem HCl 180 MG DAILY 11/27 0900 AC 11/28 PO 0932 Furosemide 40 MG DAILY 11/28 0900 AC 11/28 IV 0942 Furosemide 40 MG .STK-MED ONE 11/27 1630 DC IV 11/27 1631 Hydrocodone Bitart/ 1 TAB Q6P PRN 11/26 1300 AC Acetaminophen PO Insulin Aspart 0 TIDAC 11/26 1700 AC 11/28 SC 1144 Insulin Detemir 10 UNITS BID 11/28 2100 AC SC Ipratropium [place] 2.5 ML TID 11/26 2100 AC 11/28 INH 1424 Linaclotide 145 MCG DAILY@0600 11/27 0600 AC 11/28 PO 0517 Magnesium Oxide 400 MG DAILY 11/27 09 AC 11/28 PO 0932 Methylprednisolone 40 MG Q8 11/27 0600 DC 11/28 IV 11/30 2201 0516 Metoprolol Tartrate 25 MG BID 11/26 2100 AC 11/28 PO 0932 Multivitamins 1 TAB DAILY 11/27 09 AC 11/28 Therapeutic PO 0932 Nitroglycerin 0.4 MG .EVERY 5 MIN PRN 11/26 1300 AC SL Olanzapine 5 MG DAILY 11/27 09 AC 11/28 PO 0932 Omeprazole 40 MG DAILY AC 11/27 07 AC 11/28 PO 0516 Patient Medication 1 ED ONE ONE 11/28 1615 DC Teaching ED 11/28 1616 Pravastatin Sodium 20 MG DAILY 11/27 09 AC 11/28 PO 0932 Prednisone 30 MG DAILY 11/28 0900 AC 11/28 PO 11/30 0901 0944 Trazodone HCl 100 MG AT BEDTIME 11/26 2100 AC 11/27 PO 1953 Physical Exam: HEENT: sebastien- moist mucosa Neck: no JVD Chest: diminished BS with mild expiratory wheeze (decreased since yesterday) Cor: RRR nl S1, S2 w/o murm Abd: BS+, soft, NT Ext: 1+ edema (decreased) Labs: Laboratory Tests 11/28/17 0610: Anion Gap 11, Estimated GFR 60, BUN/Creatinine Ratio 23.3, Magnesium 1.6 11/27/17 0612: Anion Gap 10, Estimated GFR > 60, BUN/Creatinine Ratio 18.8, CBC w Diff NO MAN DIFF REQ, RBC 3.88 L, MCV 88.7, MCH 29.3, MCHC 33.0, RDW 15.0 H, MPV 8.2, Gran % 78.0 H, Lymphocytes % 15.8 L, Monocytes % 6.0, Eosinophils % 0, Basophils % 0.2, Absolute Granulocytes 4.0, Absolute Lymphocytes 0.8 L, Absolute Monocytes 0.3, Absolute Eosinophils 0, Absolute Basophils 0 Impression/Plan: #COPD Exacerbation- clinically improved compared to yesterday. Appreciate pulmonary input (Dr. Morel). Plan: Continue TRC nebs Prednisone #Acute And Chronic Hypoxic Respiratory Failure- still requiring more oxygen than baseline (4L vs 2.5 L at home). #CHF- cor pulmonale- edema decreased post IV Lasix. The patient is non-compliant with meds at home. Plan: IV Lasix 40 mg given this morning- none this evening. Follow I/O's and daily weights. Cardiology input from Dr. Sutton regarding Lasix dose. #Hypomagnesemia - corrected post repletion. Plan: Will monitor. #GERD- on omeprazole. Plan: Continue omeprazole. #Hyperlipidemia- on Pravastatin. Plan: Continue Pravastatin. #DM2- sugars high due to steroids. Plan: Continue glucose checks and sliding scale insulin. Will resume oral agents when discharging. #Deconditioning- due to above medical conditions. Plan: PT consult.
[2017-11-28 06:55] VITALS: BP 134/70
[2017-11-28 14:11] VITALS: BP 128/60
--- NOTE | 2017-11-28 15:32 | PN- Pulmonary ---
Subjective HPI/Critical Care Issues: Doing well Diuresis ongoing stable other mathews Objective Current Medications: Current Medications Sig/Kevin Start time Last Medication Dose Route Stop Time Status Admin Acetaminophen 650 MG Q6P PRN 11/26 1300 AC PO Albuterol Sulfate 3 ML TID 11/26 2100 AC 11/28 INH 1420 Apixaban 5 MG BID 11/26 2100 AC 11/28 PO 0932 Aspirin Buffered 81 MG DAILY 11/27 09 AC 11/27 PO 0926 Azithromycin 250 MG DAILY 11/27 09 AC 11/28 PO 0932 Calcium/Vitamin D 500 MG DAILY 11/27 09 AC 11/28 PO 0932 Diltiazem HCl 180 MG DAILY 11/27 09 AC 11/28 PO 0932 Furosemide 40 MG DAILY 11/28 09 AC 11/28 IV 0942 Furosemide 40 MG .STK-MED ONE 11/27 1630 DC IV 11/27 1631 Furosemide 20 MG ONCE ONE 11/27 1615 DC 11/27 IV 11/27 1616 1706 Furosemide 40 MG DAILY 11/27 09 DC 11/27 PO 0927 Furosemide 20 MG 1630 11/26 1630 DC 11/26 PO 1601 Hydrocodone Bitart/ 1 TAB Q6P PRN 11/26 1300 AC Acetaminophen PO Insulin Aspart 0 TIDAC 11/26 1700 AC 11/28 SC 1144 Ipratropium [place] 2.5 ML TID 11/26 2100 AC 11/28 INH 1424 Linaclotide 145 MCG DAILY@0600 11/27 0600 AC 11/28 PO 0517 Magnesium Oxide 400 MG DAILY 11/27 09 AC 11/28 PO 0932 Methylprednisolone 40 MG Q8 11/27 0600 DC 11/28 IV 11/30 2201 0516 Metoprolol Tartrate 25 MG BID 11/26 2100 AC 11/28 PO 0932 Multivitamins 1 TAB DAILY 11/27 09 AC 11/28 Therapeutic PO 0932 Nitroglycerin 0.4 MG .EVERY 5 MIN PRN 11/26 1300 AC SL Olanzapine 5 MG DAILY 11/27 899 AC 11/28 PO 0932 Omeprazole 40 MG DAILY AC 11/27 0700 AC 11/28 PO 0516 Pravastatin Sodium 20 MG DAILY 11/27 09 AC 11/28 PO 0932 Prednisone 30 MG DAILY 11/28 09 AC 11/28 PO 0944 Trazodone HCl 100 MG AT BEDTIME 11/26 2100 AC 11/27 PO 3 Vital Signs & I&O Last 24 Hrs of Vitals and I&O: Vital Signs Date Time Temp Pulse Resp B/P B/P Pulse O2 O2 Flow FiO2 Mean Ox Delivery Rate 11/28 1411 97.5 80 20 128/60 93 Nasal 4.0L Cannula 11/28 1007 94 Nasal 3.0L Cannula 11/28 0932 88 134/70 11/28 0833 93 Nasal 4.0L Cannula 11/28 0800 94 Nasal 3.0L Cannula 11/28 0655 98.3 88 20 134/70 98 Nasal 4.0L Cannula 11/28 0000 93 Nasal 4.0L Cannula 11/27 2226 97.8 78 18 134/62 92 Nasal 4.0L Cannula 11/27 1959 134/62 11/27 1905 92 Nasal 4.0L Cannula 11/27 1559 Nasal 4.0L Cannula Intake & Output 11/28 1600 11/28 0800 11/28 0000 Intake Total 400 200 120 Output Total 400 600 50 Balance 0 -400 70 Intake, IV 0 Intake, Oral 400 200 120 Output, Stool 50 Output, Urine 400 600 Patient 246 lb Weight Weight Bed scale Measurement Method Impression/Plan Impression/Plan Impression/Plan: General Appearance Alert, Oriented X3, Cooperative, No Acute Distress Cardiovascular Regular Rate Lungs mild crackles Abdomen Normal Bowel Sounds, Soft, No Tenderness, ostomy site [id number] appearing Extremities nonpitting edema bilaterally Ms. Akins is an 82-year-old female with past medical history of atrial fibrillation on apixaban followed by Dr. Abdi, chronic obstructive and restrictive lung disease on 2.5 L nasal cannula, chronic rt middle lobe syndrome , Mild ILD, history of upper GI bleed, renal cell carcinoma, diabetes mellitus, and h/o stage 1 breast cancer who presents with complaints of shortness of breath, in the setting of stopping her lasix lately * Mod to severe copd with mild ild with chronic rt middle lobe syndrome, now with minimal wheezing today, and her recent deterioration is prob due to stopping her lasix. No evidence of sig copde * Chronic pedal edema with chronic corpulmonale with mild fluid overload * Significant history of hiatal hernia esophageal diverticulum with chronic right middle lobe syndrome with significant aspiration on and off/ Pt is probably having sig gerd with recurrent aspirations, * Previous history of breast cancers, renal cell carcinoma status post ablation no evidence of recurrence so far * Diabetes/hypertension/hyperlipidemia/anxiety stable * GERD, chronic pain syndrome, significant malunion of the lower extremities * Previous history of volvulus requiring partial colectomy colostomy with ventral hernia with chronic abdominal discomfort * Chronic recurrent pna in the right side with mild bronchial narrowing with previous chest ct RECOMMENDATION lasix daily 40 mg and keep potassium more than 4 po prednisone 30 mg daily for 4 days and dc Cont out pt meds PRN nebs Incentive spirometry Follow sugars slolwy Cont anticoag and calcium channel valorie Cont mag Keep hob up Check echo WIll follow closely
[2017-11-28 21:14] VITALS: BP 118/68
[2017-11-29 06:43] VITALS: BP 130/80
--- NOTE | 2017-11-29 06:46 | PN- Housestaff ---
See Addendum Subjective Follow-up For: COPD exacerbation Acute on chronic hypoxemic respiratory failure Complaints: frequent urination and poor sleep Subjective: She reported that she had to go to the bathroom every 1 hour last night for urination, she mentioned that her ileostomy bag was changed daily to admission both in the hospital has not been changed and there was nothing in the bag but gas. She mentioned that her respiration is better with less shortness of breath. Review of Systems Constitutional: Reports: no symptoms, see HPI. Objective Last 24 Hrs of Vital Signs/I&O Vital Signs Date Time Temp Pulse Resp B/P B/P Pulse O2 O2 Flow FiO2 Mean Ox Delivery Rate 11/29 0924 78 132/78 11/29 0850 94 Nasal 4.0L Cannula 11/29 08 22 95 Nasal 3.0L Cannula 11/29 0800 95 Nasal 3.0L Cannula 11/29 0643 98.2 80 20 130/80 95 Room Air 11/29 0000 95 Nasal 3.0L Cannula 11/28 2114 98.5 87 18 118/68 95 Nasal 4.0L Cannula 11/28 2113 87 118/68 11/28 1943 94 Nasal 4.0L Cannula 11/28 1600 Nasal 3.0L Cannula 11/28 1411 97.5 80 20 128/60 93 Nasal 4.0L Cannula Intake & Output 11/29 1600 11/29 0800 11/29 0000 Intake Total 480 480 Output Total 550 10 Balance -70 470 Intake, Oral 480 480 Number 0 Bowel Movements Output, Stool 10 Output, Urine 550 Patient 245 lb Weight Weight Bed scale Measurement Method Physical Exam General Appearance: Alert, Oriented X3, Cooperative, No Acute Distress Skin: No Rashes, No Breakdown Skin Temp/Moisture Exam: Warm/Dry Sepsis Skin Exam (color): Normal for Ethnicity HEENT: Atraumatic, PERRLA Neck: Supple Cardiovascular: Regular Rate, Normal S1, Normal S2 Lungs: Right sided wheeze and basilar crackles Abdomen: Normal Bowel Sounds, Soft, No Tenderness Extremities: Lower extremity bilateral pitting edema 2+ Vascular: Normal Pulses, Pulses Symmetrical Assessment/Plan Assessment: She is an 82-year-old female with past medical history of A. fib on apixaban, COPD on 2.5 O2 at home, diabetes mellitus, who is currently in the hospital with COPD exacerbation pulmonary congestion due to noncompliance with diuretic medication. Physical examination pulmonary findings were similar to yesterday, she received a single dose of 40 mg Lasix yesterday morning and also this morning, she had a fluid balance of -70. Her O2 saturation on room air is 92% with a respiratory rate of 20. I checked the site of her ileostomy there is no redness, swelling, bruising, or discharge. Problem List: 1. COPD exacerbation 2. Diabetes mellitus 3. Colostomy Pain Ratin Pain Location: NA Pain Goal: Remain pain free (NA) Pain Plan: NA Tomorrow's Labs & Rationales: ECHO
--- NOTE | 2017-11-29 12:11 | Cons- Cardiology ---
General Information and HPI Consulting Request Date of Consult: 11/29/17 Requested By: Bernard Thurston MD Reason for Consult: Shortness of breath Source of Information: patient, old records History of Present Illness: This is an 82-year-old female with a past medical history of oxygen dependent COPD/restrictive lung disease, atrial fibrillation on anticoagulation, chronic lower extremity edema on low-dose Lasix, renal cancer, breast cancer, diabetes, obesity, hypertension, and hyperlipidemia who presents with a chief complaint of worsening shortness of breath; not associated with chest pain or palpitations; she did note recent increase in lower extremity edema; she admits she had not been taking her oral diuretic due to frequent urination. Denies any syncope, slurring of speech, visual changes, or focal weakness. Denies subjective fever. Denies any recent bleeding issues. Allergies/Medications Allergies: Coded Allergies: Penicillins (ITCHING 07/15/15) Home Med List: Apixaban (Eliquis) 5 MG TABLET 1 TAB PO BID BLOOD THINNER (Reported) Aspirin (Ecotrin*) 81 MG TABLET.DR 1 TAB PO PRN PAIN (Reported) Aspirin (Ecotrin*) 325 MG TABLET.DR 1 TAB PO PRN PAIN (Reported) Calcium Citrate (Unknown Strength) TABLET 630 MG PO QAM SUPPLEMENT (Reported) Diltiazem HCl (Diltiazem 24HR ER) 180 MG CAP.ER.24H 1 CAP PO DAILY HEART/BP ( Reported) Furosemide (Lasix) 20 MG TABLET 1 TAB PO SI DIURETIC (Reported) Furosemide (Lasix) 20 MG TABLET 1 TAB PO SI DIURETIC (Reported) Glipizide (Glipizide ER) 5 MG TAB.ER.24 1 TAB PO DAILY DM (Reported) Hydrocodone/Acetaminophen (Hydrocodon-Acetaminoph 7.5-325) 7.5 MG-325 MG TABLET 1 TAB PO Q6H PRN PAIN (Reported) Ibuprofen (Advil) 200 MG CAPSULE 1 TAB PO PRN PAIN (Reported) Ipratropium/Albuterol Sulfate (Iprat-Albut 0.5-3(2.5) MG/3 Ml) 0.5 MG-3 MG (2.5 MG BASE)/3 ML AMPUL.NEB 1 VIAL INH BID RESP. (Reported) Linaclotide (Linzess) 72 MCG CAPSULE 1 CAP PO DAILY GI (Reported) Magnesium Oxide (Magnesium) 250 MG TABLET 1 TAB PO 0800 SUPPLEMENT (Reported) Metoprolol Tartrate 25 MG TABLET 1 TAB PO BID HEART/BP (Reported) Multivitamin (Multi-Vitamin Daily) 1 EACH TABLET 1 TAB PO DAILY SUPPLEMENT ( Reported) Nitroglycerin 0.4 MG TAB.SUBL 1 TAB SL AD PRN CHEST PAIN (Reported) 1st sign of attack; may repeat every 5 minutes until relief; if pain persists after 3 tablets in 15 minutes, prompt medical att Olanzapine (Zyprexa) 5 MG TABLET 1 TAB PO DAILY MENTAL HEALTH (Reported) Pantoprazole Sodium 40 MG TABLET.DR 1 TAB PO 0930 GI (Reported) Pravastatin Sodium (Pravachol) 20 MG TABLET 1 TAB PO DAILY CHOLESTEROL ( Reported) Sitagliptin Phos/Metformin HCl (Janumet 50-1,000 MG Tablet) 50 MG-1,000 MG TABLET 1 TAB PO BID DM (Reported) Trazodone HCl 100 MG TABLET 1 TAB PO QHS DEPRESSION (Reported) Current Medications: Current Medications Sig/Kevin Start time Last Medication Dose Route Stop Time Status Admin Acetaminophen 650 MG Q6P PRN 11/26 1300 AC PO Albuterol Sulfate 3 ML TID 11/26 2100 AC 11/29 INH 0904 Apixaban 5 MG BID 11/26 2099 AC 11/29 PO 0924 Aspirin Buffered 81 MG DAILY 11/27 899 AC 11/29 PO 0924 Azithromycin 250 MG DAILY 11/27 899 AC 11/29 PO 0924 Calcium/Vitamin D 500 MG DAILY 11/27 899 AC 11/29 PO 0924 Diltiazem HCl 180 MG DAILY 11/27 899 AC 11/29 PO 0924 Furosemide 40 MG DAILY 11/28 899 AC 11/29 IV 0923 Hydrocodone Bitart/ 1 TAB Q6P PRN 11/26 1300 AC Acetaminophen PO Insulin Aspart 0 TIDAC 11/26 1700 AC 11/29 SC 0923 Insulin Detemir 10 UNITS BID 11/28 2100 AC 11/29 SC 0923 Ipratropium [place] 2.5 ML TID 11/26 2100 AC 11/29 INH 0904 Linaclotide 145 MCG DAILY@11/27 0600 AC 11/29 PO 0538 Magnesium Oxide 400 MG DAILY 11/27 899 AC 11/29 PO 0924 Metoprolol Tartrate 25 MG BID 11/26 2099 AC 11/29 PO 0924 Multivitamins 1 TAB DAILY 11/27 09 AC 11/29 Therapeutic PO 0924 Nitroglycerin 0.4 MG .EVERY 5 MIN PRN 11/26 1300 AC SL Olanzapine 5 MG DAILY 11/27 09 AC 11/29 PO 0924 Omeprazole 40 MG DAILY AC 11/27 07 AC 11/29 PO 0538 Patient Medication 1 ED ONE ONE 11/28 1615 DC 11/28 Teaching ED 11/28 1616 1658 Pravastatin Sodium 20 MG DAILY 11/27 899 AC 11/29 PO 0924 Prednisone 30 MG DAILY 11/28 09 AC 11/29 PO 11/30 0901 0924 Trazodone HCl 100 MG AT BEDTIME 11/26 2100 AC 11/28 PO 2113 Review of Systems Review of Systems: Review of systems as per HPI. The remainder of a 10 point review of systems was reviewed and was otherwise negative. Past History Travel History Traveled to [place] past 21 day No Medical History Blood Transfusion Hx: Yes Neurological: NONE EENT: NONE Cardiovascular: AFIB,SVT (no anticoagulation) Respiratory: COPD (2 L) Gastrointestinal: diverticulitis, upper GI bleed Hepatic: NONE Renal: renal cell carcinoma s/p ablation of tumor Musculoskeletal: chronic back pain, osteoarthritis Psychiatric: anxiety Endocrine: diabetes Blood Disorders: NONE Cancer(s): breast cancer, renal cancer DETECTIVE PRECINCT/Reproductive: NONE Surgical History Surgical History: CARDIAC ABLATION COLOSTOMY Family History Relations & Conditions If Any: FATHER (Father - [place] at 46.). Psychosocial History Where Do You Live? Home Services at Home: None Smoking Status: Former Smoker Exam & Diagnostic Data Vital Signs and I&O Vital Signs Date Time Temp Pulse Resp B/P B/P Pulse O2 O2 Flow FiO2 Mean Ox Delivery Rate 11/30 923 78 132/78 11/29 0850 94 Nasal 4.0L Cannula 11/30 799 22 95 Nasal 3.0L Cannula 11/29 08 95 Nasal 3.0L Cannula 11/29 0643 98.2 80 20 130/80 95 Room Air 11/29 0000 95 Nasal 3.0L Cannula 11/28 2113 98.5 87 18 118/68 95 Nasal 4.0L Cannula 11/28 2112 87 118/68 11/28 1943 94 Nasal 4.0L Cannula 11/28 1600 Nasal 3.0L Cannula 11/28 1411 97.5 80 20 128/60 93 Nasal 4.0L Cannula Intake & Output 11/29 0811/29 0000 11/28 1600 11/28 0800 11/28 0000 Intake Total 480 480 400 200 120 Output Total 550 10 400 600 50 Balance -70 470 0 -400 70 Intake, IV 0 Intake, Oral 480 480 400 200 120 Number 0 Bowel Movements Output, Stool 10 50 Output, Urine 550 400 600 Patient 245 lb 246 lb Weight Weight Bed scale Bed scale Measurement Method Physical Exam: General: no apparent distress. Alert. Overweight. On nasal cannula oxygen Eyes: No obvious scleral icterus. HEENT: No jugular venous distention or abnormal jugular venous pulsations. Cardiovascular: Normal intensity S1/S2. Irregular Respiratory: Lungs clear to auscultation bilaterally. Abdomen: Soft, nontender with no guarding or rebound tenderness. Musculoskeletal: No clubbing or cyanosis noted; trace edema Skin: warm Neurologic: No gross focal deficits noted Labs/Michael Results: Laboratory Tests 11/29 11/28 0617 0610 Chemistry Sodium (137 - 145 mmol/L) 141 138 Potassium (3.5 - 5.1 mmol/L) 4.1 4.3 Chloride (98 - 107 mmol/L) 92 L 92 L Carbon Dioxide (22 - 30 mmol/L) 39 H 35 H Anion Gap (5 - 16) 10 11 BUN (7 - 17 mg/dL) 28 H 21 H Creatinine (0.5 - 1.0 mg/dL) 0.8 0.9 Estimated GFR (>60 ml/min) > 60 60 BUN/Creatinine Ratio (7 - 25 %) 35.0 H 23.3 Magnesium (1.6 - 2.3 mg/dL) 1.6 Diagnostic Data EKG Results Tracing personally reviewed and shows coarse atrial fibrillation at 74 bpm with normal R-wave progression CXR Results No acute pulmonary process is seen. Other Results Not currently on telemetry Assessment/Plan Assessment/Plan 1. Multifactorial shortness of breath likely with a component of volume overload in the setting of noncompliance with Lasix 2. History of oxygen dependent COPD/restrictive lung disease 3. Persistent atrial fibrillation on chronic anticoagulation 4. Chronic lower extremity edema 5. History of hypertension/hyperlipidemia 6. Obesity The patient is clinically improving. Can likely be transitioned back to oral Lasix and I did discuss the importance of compliance with her medication. Agree with Dr. Morel about obtaining echocardiogram as she has not had a recent study. Heart rate appears well controlled on current regimen and she should be continued on her anticoagulation. Her prior nuclear stress test in my office showed no evidence of ischemia. Her blood pressure is well controlled. Gurdeep Austin MD [facility] Consult Acknowledgment - Thank you for your consult request.
[2017-11-29 13:32] VITALS: BP 100/60
--- NOTE | 2017-11-29 13:39 | PN- Pulmonary ---
Subjective HPI/Critical Care Issues: Doing better Did walk with therapy but feels unsteady Back to baseline Objective Current Medications: Current Medications Sig/Kevin Start time Last Medication Dose Route Stop Time Status Admin Acetaminophen 650 MG Q6P PRN 11/26 1300 AC PO Albuterol Sulfate 3 ML TID 11/26 2100 AC 11/29 INH 0904 Apixaban 5 MG BID 11/26 2100 AC 11/29 PO 0924 Aspirin Buffered 81 MG DAILY 11/27 09 AC 11/29 PO 0924 Azithromycin 250 MG DAILY 11/27 09 AC 11/29 PO 0924 Calcium/Vitamin D 500 MG DAILY 11/27 09 AC 11/29 PO 0924 Diltiazem HCl 180 MG DAILY 11/27 09 AC 11/29 PO 0924 Furosemide 40 MG DAILY 11/28 09 AC 11/29 IV 0923 Hydrocodone Bitart/ 1 TAB Q6P PRN 11/26 1300 AC Acetaminophen PO Insulin Aspart 0 TIDAC 11/26 1700 AC 11/29 SC 1245 Insulin Detemir 10 UNITS BID 11/28 2100 AC 11/29 SC 0923 Ipratropium [place] 2.5 ML TID 11/26 2100 AC 11/29 INH 0904 Linaclotide 145 MCG DAILY@00 11/27 0600 AC 11/29 PO 0538 Magnesium Oxide 400 MG DAILY 11/27 09 AC 11/29 PO 0924 Metoprolol Tartrate 25 MG BID 11/26 2100 AC 11/29 PO 0924 Multivitamins 1 TAB DAILY 11/27 09 AC 11/29 Therapeutic PO 0924 Nitroglycerin 0.4 MG .EVERY 5 MIN PRN 11/26 1300 AC SL Olanzapine 5 MG DAILY 11/27 09 AC 11/29 PO 0924 Omeprazole 40 MG DAILY AC 11/27 07 AC 11/29 PO 0538 Patient Medication 1 ED ONE ONE 11/28 1615 DC 11/28 Teaching ED 11/28 1616 1658 Pravastatin Sodium 20 MG DAILY 11/27 899 AC 11/29 PO 0924 Prednisone 30 MG DAILY 11/28 09 AC 11/29 PO 11/30 0901 0924 Trazodone HCl 100 MG AT BEDTIME 11/26 2100 AC 11/28 PO 2113 Vital Signs & I&O Last 24 Hrs of Vitals and I&O: Vital Signs Date Time Temp Pulse Resp B/P B/P Pulse O2 O2 Flow FiO2 Mean Ox Delivery Rate 08/01 0924 78 132/78 11/29 0850 94 Nasal 4.0L Cannula 11/29 0800 22 95 Nasal 3.0L Cannula 11/29 0800 95 Nasal 3.0L Cannula 11/29 0643 98.2 80 20 130/80 95 Room Air 11/29 0000 95 Nasal 3.0L Cannula 11/28 2114 98.5 87 18 118/68 95 Nasal 4.0L Cannula 11/28 2113 87 118/68 11/28 1943 94 Nasal 4.0L Cannula 11/28 1600 Nasal 3.0L Cannula 11/28 1411 97.5 80 20 128/60 93 Nasal 4.0L Cannula Intake & Output 11/29 1600 11/29 0800 11/29 0000 Intake Total 480 480 Output Total 400 550 10 Balance -400 -70 470 Intake, Oral 480 480 Number 0 Bowel Movements Output, Stool 10 Output, Urine 400 550 Patient 245 lb Weight Weight Bed scale Measurement Method Laboratory Tests 11/29 11/28 0617 0610 Chemistry Sodium (137 - 145 mmol/L) 141 138 Potassium (3.5 - 5.1 mmol/L) 4.1 4.3 Chloride (98 - 107 mmol/L) 92 L 92 L Carbon Dioxide (22 - 30 mmol/L) 39 H 35 H Anion Gap (5 - 16) 10 11 BUN (7 - 17 mg/dL) 28 H 21 H Creatinine (0.5 - 1.0 mg/dL) 0.8 0.9 Estimated GFR (>60 ml/min) > 60 60 BUN/Creatinine Ratio (7 - 25 %) 35.0 H 23.3 Magnesium (1.6 - 2.3 mg/dL) 1.6 Impression/Plan Impression/Plan Impression/Plan: eneral Appearance Alert, Oriented X3, Cooperative, No Acute Distress Cardiovascular Regular Rate Lungs mild crackles Abdomen Normal Bowel Sounds, Soft, No Tenderness, ostomy site [id number] appearing Extremities nonpitting edema bilaterally Ms. Akins is an 82-year-old female with past medical history of atrial fibrillation on apixaban followed by Dr. Abdi, chronic obstructive and restrictive lung disease on 2.5 L nasal cannula, chronic rt middle lobe syndrome , Mild ILD, history of upper GI bleed, renal cell carcinoma, diabetes mellitus, and h/o stage 1 breast cancer who presents with complaints of shortness of breath, in the setting of stopping her lasix lately * Mod to severe copd with mild ild with chronic rt middle lobe syndrome, now with minimal wheezing today, and her recent deterioration is prob due to stopping her lasix. No evidence of sig copde * Chronic pedal edema with chronic corpulmonale with mild fluid overload * Significant history of hiatal hernia esophageal diverticulum with chronic right middle lobe syndrome with significant aspiration on and off/ Pt is probably having sig gerd with recurrent aspirations, * Previous history of breast cancers, renal cell carcinoma status post ablation no evidence of recurrence so far * Diabetes/hypertension/hyperlipidemia/anxiety stable * GERD, chronic pain syndrome, significant malunion of the lower extremities * Previous history of volvulus requiring partial colectomy colostomy with ventral hernia with chronic abdominal discomfort * Chronic recurrent pna in the right side with mild bronchial narrowing with previous chest ct RECOMMENDATION Daily Lasix Prednisone for a few more days and discontinue PRN nebs Incentive spirometry Follow sugars closely Cont anticoag and calcium channel valorie Cont mag Keep hob up Check echo WIll follow closely Okay to be DC'd home or STR depending on PT evaluation
[2017-11-29 22:16] VITALS: BP 124/66
--- NOTE | 2017-11-30 06:31 | PN- Housestaff ---
See Addendum Subjective Follow-up For: COPD exacerbation Acute on chronic hypoxemic respiratory failure Subjective: Examined the patient this morning, she was complaining of urination once an hour. Review of Systems Constitutional: Reports: see HPI. Objective Last 24 Hrs of Vital Signs/I&O Vital Signs Date Time Temp Pulse Resp B/P B/P Pulse O2 O2 Flow FiO2 Mean Ox Delivery Rate 11/30 1418 97.7 80 20 144/89 92 Nasal 3.0L Cannula 11/30 0915 76 130/72 11/30 0809 93 Nasal 3.0L Cannula 11/30 0800 91 Nasal 3.0L Cannula 11/30 0712 Nasal 3.0L Cannula 11/30 0702 97.5 76 24 130/72 90 Nasal 3.0L Cannula 11/30 0000 Nasal 3.0L Cannula 11/29 2216 97.9 94 20 124/66 94 Nasal 3.0L Cannula 11/29 2144 72 124/60 11/29 1830 93 Nasal 3.0L Cannula Intake & Output 11/30 1600 11/30 0800 11/30 0000 Intake Total 800 480 480 Output Total 400 430 Balance 400 480 50 Intake, Oral 800 480 480 Output, Stool 30 Output, Urine 400 400 Patient 249 lb Weight Weight Bed scale Measurement Method Physical Exam General Appearance: Alert, Oriented X3, Cooperative, No Acute Distress Cardiovascular: Regular Rate, Normal S1, Normal S2 Lungs: Rt sided wheeze better than yesterday Assessment/Plan Assessment: An 82-year-old woman with past history significant for A. fib, COPD on home O2, DM, came to the hospital with chief complaint of COPD exacerbation, pulmonary exacerbation. She had fluid balance of -325 cc. She did not have portable oxygen at home when she was admitted although she was on oxygen, she will needed once she is discharged from hospital. mechanical engineering manager has found a bed at [facility] for her and she can be discharged to [facility] tomorrow. COPD exacerbation: The patient has clinically improved. Plan: We will continue with TCR and nebulizers. Acute on chronic hypoxic respiratory failure: Bedside pulse oximetry showed 92% Plan: We will continue oxygen with nasal cannula Congestive heart failure-cor pulmonale: She had a 5 pound weight loss since yesterday. Plan: We will follow-up intakes and outputs and daily weights, she did get p.o. Lasix in the morning on the avoid frequent urination during the night and improve her sleep. Will follow with echo. Hypomagnesemia: We repeated with magnesium, her magnesium level is back to normal. Plan: We will continue to monitor serum level. GERD: Plan: She is taking proton pump inhibitor (omeprazole) Hyperlipidemia: Plan: She is taking pravastatin as she was before. Diabetes mellitus type 2: Her blood sugar is controlled with sliding scale protocol. Plan: We will check blood sugar and control with based on sliding scale. She will be back to her p.o. medication for diabetes once discharged. Problem List: 1. Acute respiratory failure with hypoxia 2. COPD exacerbation 3. Diabetes 4. Renal neoplasm Pain Ratin Pain Location: NA Pain Goal: Remain pain free Pain Plan: NA Tomorrow's Labs & Rationales: BEP
[2017-11-30 07:02] VITALS: BP 130/72
--- NOTE | 2017-11-30 09:59 | PN- Cardiology ---
Subjective Subjective: Patient resting comfortably. Admits to no symptoms of chest pain or unusual shortness of breath. Echocardiogram was not performed yet. Objective Vital Signs and I&Os Vital Signs Date Time Temp Pulse Resp B/P B/P Pulse O2 O2 Flow FiO2 Mean Ox Delivery Rate 11/30 0915 76 130/72 / 0809 93 Nasal 3.0L Cannula 11/30 0712 Nasal 3.0L Cannula 11/30 0702 97.5 76 24 130/72 90 Nasal 3.0L Cannula 11/30 0000 Nasal 3.0L Cannula 11/29 2216 97.9 94 20 124/66 94 Nasal 3.0L Cannula 11/29 2144 72 124/60 11/29 1830 93 Nasal 3.0L Cannula 11/29 1600 Nasal 3.0L Cannula 11/29 1332 98.6 79 18 100/60 98 Nasal 3.0L Cannula Intake & Output 11/30 1600 11/30 0800 11/30 0000 11/29 1600 11/29 0800 11/29 0000 Intake Total 480 480 850 480 480 Output Total 430 1155 550 10 Balance 480 50 -305 -70 470 Intake, IV 50 Intake, Oral 480 480 800 480 480 Number 0 0 Bowel Movements Output, Stool 30 30 10 Output, Urine 400 1125 550 Patient 249 lb 245 lb Weight Weight Bed scale Bed scale Measurement Method Physical Exam: On physical exam patient appeared comfortable Head normocephalic atraumatic Eyes sclera anicteric conjunctiva showed no pallor extraocular muscles were normal Neck no jugular venous distention no thyroid masses no palpable nodes Chest air entry equal bilaterally, scattered rhonchi Heart irregular rhythm with a ventricular rate around 80 Abdomen soft no organomegaly bowel sounds normal Extremities no edema Neurological no gross motor or sensory deficits Current Medications: Current Medications Sig/Kevin Start time Last Medication Dose Route Stop Time Status Admin Acetaminophen 650 MG Q6P PRN 11/26 1300 AC PO Albuterol Sulfate 3 ML TID 11/26 2099 AC 11/30 INH 0807 Apixaban 5 MG BID 11/26 2099 AC 11/30 PO 0916 Aspirin Buffered 81 MG DAILY 11/27 899 AC 11/30 PO 0916 Azithromycin 250 MG DAILY 11/27 899 AC 11/30 PO 0915 Calcium/Vitamin D 500 MG DAILY 11/27 899 AC 11/30 PO 0915 Diltiazem HCl 180 MG DAILY 11/27 899 AC 11/30 PO 0916 Furosemide 60 MG DAILY 11/30 0900 AC 11/30 PO 0915 Furosemide 40 MG DAILY 11/28 0900 DC 11/29 IV 0923 Hydrocodone Bitart/ 1 TAB Q6P PRN 11/26 1300 AC Acetaminophen PO Insulin Aspart 0 TIDAC 11/26 1700 AC 11/29 SC 1705 Insulin Detemir 10 UNITS BID 11/28 2100 AC 11/30 SC 0915 Ipratropium [place] 2.5 ML TID 11/26 2100 AC 11/30 INH 0807 Linaclotide 145 MCG DAILY@0600 11/27 0600 AC 11/30 PO 0537 Magnesium Oxide 400 MG DAILY 11/27 09 AC 11/30 PO 0915 Metoprolol Tartrate 25 MG BID 11/26 2100 AC 11/30 PO 0915 Multivitamins 1 TAB DAILY 11/27 0900 AC 11/30 Therapeutic PO 0915 Nitroglycerin 0.4 MG .EVERY 5 MIN PRN 11/26 1300 AC SL Olanzapine 5 MG DAILY 11/27 09 AC 11/30 PO 0915 Omeprazole 40 MG DAILY AC 11/27 0700 AC 11/30 PO 0537 Pravastatin Sodium 20 MG DAILY 11/27 0900 AC 11/30 PO 0915 Prednisone 30 MG DAILY 11/28 0900 DC 11/30 PO 11/30 0901 0915 Psyllium Hydrophilic 1 PAC DAILY NEEDED 11/29 1600 AC 11/29 Mucilloid PO 1706 Trazodone HCl 100 MG AT BEDTIME 11/26 2100 AC 11/29 PO 2144 Results Last 48 Hrs of Labs/Mics: Laboratory Tests 11/30/17 0615: Anion Gap 6, Estimated GFR 60, BUN/Creatinine Ratio 34.4 H 11/29/17 0617: Anion Gap 10, Estimated GFR > 60, BUN/Creatinine Ratio 35.0 H Assessment/Plan Assessment/Plan In summary this 82-year-old female has a following problems . Multifactorial shortness of breath likely with a component of volume overload in the setting of noncompliance with Lasix 2. History of oxygen dependent COPD/restrictive lung disease 3. Persistent atrial fibrillation on chronic anticoagulation 4. Chronic lower extremity edema 5. History of hypertension/hyperlipidemia 6. Obesity Echocardiogram is pending. Continue telemetry? Not applicable
--- NOTE | 2017-11-30 13:22 | PN- Pulmonary ---
Subjective HPI/Critical Care Issues: Doing better per chart Fast asleep when i saw her and did not wake her Objective Current Medications: Current Medications Sig/Kevin Start time Last Medication Dose Route Stop Time Status Admin Acetaminophen 650 MG Q6P PRN 11/26 1300 AC PO Albuterol Sulfate 3 ML TID 11/26 2100 AC 11/30 INH 0807 Apixaban 5 MG BID 11/26 2100 AC 11/30 PO 0916 Aspirin Buffered 81 MG DAILY 11/27 0900 AC 11/30 PO 0916 Azithromycin 250 MG DAILY 11/27 0900 AC 11/30 PO 0915 Calcium/Vitamin D 500 MG DAILY 11/27 09 AC 11/30 PO 0915 Diltiazem HCl 180 MG DAILY 11/27 09 AC 11/30 PO 0916 Furosemide 60 MG DAILY 11/30 09 AC 11/30 PO 0915 Furosemide 40 MG DAILY 11/28 0900 DC 11/29 IV 0923 Hydrocodone Bitart/ 1 TAB Q6P PRN 11/26 1300 AC Acetaminophen PO Insulin Aspart 0 TIDAC 11/26 1700 AC 11/30 SC 1245 Insulin Detemir 10 UNITS BID 11/28 2100 AC 11/30 SC 0915 Ipratropium [place] 2.5 ML TID 11/26 2100 AC 11/30 INH 0807 Linaclotide 145 MCG DAILY@0600 11/27 0600 AC 11/30 PO 0537 Magnesium Oxide 400 MG DAILY 11/27 0900 AC 11/30 PO 0915 Metoprolol Tartrate 25 MG BID 11/26 2100 AC 11/30 PO 0915 Multivitamins 1 TAB DAILY 11/27 0900 AC 11/30 Therapeutic PO 0915 Nitroglycerin 0.4 MG .EVERY 5 MIN PRN 11/26 1300 AC SL Olanzapine 5 MG DAILY 11/27 0900 AC 11/30 PO 0915 Omeprazole 40 MG DAILY AC 11/27 0700 AC 11/30 PO 0537 Potassium Chloride 20 MEQ ONCE ONE 11/30 1100 DC 11/30 PO 11/30 1101 1245 Potassium Chloride 20 MEQ Q1 11/30 1000 DC 11/30 PO 11/30 1001 1116 Pravastatin Sodium 20 MG DAILY 11/27 0900 AC 11/30 PO 0915 Prednisone 30 MG DAILY 11/28 0900 DC 11/30 PO 11/30 0901 0915 Psyllium Hydrophilic 1 PAC DAILY NEEDED 11/29 1600 AC 11/29 Mucilloid PO 1706 Trazodone HCl 100 MG AT BEDTIME 11/26 2100 AC 11/29 PO 2144 Vital Signs & I&O Last 24 Hrs of Vitals and I&O: Vital Signs Date Time Temp Pulse Resp B/P B/P Pulse O2 O2 Flow FiO2 Mean Ox Delivery Rate 11/30 0815 76 130/72 11/30 0809 93 Nasal 3.0L Cannula 11/30 08 91 Nasal 3.0L Cannula 11/30 0712 Nasal 3.0L Cannula 11/30 0702 97.5 76 24 130/72 90 Nasal 3.0L Cannula 11/30 0000 Nasal 3.0L Cannula 11/29 2216 97.9 94 20 124/66 94 Nasal 3.0L Cannula 11/29 2144 72 124/60 11/29 1830 93 Nasal 3.0L Cannula 11/29 1600 Nasal 3.0L Cannula 11/29 1332 98.6 79 18 100/60 98 Nasal 3.0L Cannula Intake & Output 11/30 1600 11/30 0800 11/30 0000 Intake Total 480 480 Output Total 400 430 Balance -400 480 50 Intake, Oral 480 480 Output, Stool 30 Output, Urine 400 400 Patient 249 lb Weight Weight Bed scale Measurement Method Laboratory Tests 11/30 11/29 0615 0617 Chemistry Sodium (137 - 145 mmol/L) 136 L 141 Potassium (3.5 - 5.1 mmol/L) 3.7 4.1 Chloride (98 - 107 mmol/L) 91 L 92 L Carbon Dioxide (22 - 30 mmol/L) 39 H 39 H Anion Gap (5 - 16) 6 10 BUN (7 - 17 mg/dL) 31 H 28 H Creatinine (0.5 - 1.0 mg/dL) 0.9 0.8 Estimated GFR (>60 ml/min) 60 > 60 BUN/Creatinine Ratio (7 - 25 %) 34.4 H 35.0 H Impression/Plan Impression/Plan Impression/Plan: Impression/Plan: eneral Appearance Alert, Oriented X3, Cooperative, No Acute Distress Cardiovascular Regular Rate Lungs mild crackles Abdomen Normal Bowel Sounds, Soft, No Tenderness, ostomy site [id number] appearing Extremities nonpitting edema bilaterally Ms. Akins is an 82-year-old female with past medical history of atrial fibrillation on apixaban followed by Dr. Abdi, chronic obstructive and restrictive lung disease on 2.5 L nasal cannula, chronic rt middle lobe syndrome , Mild ILD, history of upper GI bleed, renal cell carcinoma, diabetes mellitus, and h/o stage 1 breast cancer who presents with complaints of shortness of breath, in the setting of stopping her lasix lately * Mod to severe copd with mild ild with chronic rt middle lobe syndrome, now with minimal wheezing today, and her recent deterioration is prob due to stopping her lasix. 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
[2017-11-30 14:18] VITALS: BP 144/89
--- NOTE | 2017-11-30 21:41 | Discharge Summary ---
Visit Information Visit Dates Admission Date: 11/26/17 Discharge Date: 12/01/17 Hospital Course Course Attending Physician: Bernard Thurston MD Primary Care Physician: Raimundo Almanzar MD Consulting Request: 1 Consulting Specialty: Cardiology Consulting Physician: Dr. Austin Consulting Request: 2 Consulting Specialty: Pulmonary Disease Consulting Physician: Dr. Morel Hospital Course: Patient is an 82 y/o female with past medical history of atrial fibrillation on apixaban followed by Dr. Diamond, COPD on 2.5 L nasal cannula followed by Dr. Morel, upper GI bleed, renal cell carcinoma, diabetes mellitus, and breast cancer who presents with cheif complaint of progressive shortness of breath. On Admission: Vital signs: afebrile, HR 81, RR 18, BP 137/77, saturating 80% on room air Labs were significant for white blood cell count 4.5, chloride 96, carbon dioxide 34, glucose 136, calcium 8.3, magnesium 1.5, albumin 3.2, BNP 778, LFTs negative, INR 1.17, d-dimer 312 Imaging: Chest x-ray showed no acute process Patient was admitted to the general medicine floor for the followin. Fluid overload due to cor pulmonale and noncompliance 2. COPD Exacerbation 3. Acute on chronic hypoxic respiratory failure due to above 4. Chronic conditions: A.fib, DM, HTN, HLD, Obesity, Chronic lower extremity edema, history of volvulus requiring colostomy, GERD Patient presented with dyspnea and desaturating to the 80s on her home oxygen. Likely multifactorial secondary to COPD exacerbation and fluid overload due to cor pulmonale and noncompliance with lasix. Patient was given a course of steroids, azithromycin and TRC/DuoNeb treatments. Patient was evaluated by pulmonology. Patient was given IV lasix and switched to PO lasix. It appears patient does not absorb lasix due to significant gut edema and may benefit from bumex. She was sent on the equivalent dose of bumex 1.5mg daily. Patient was evaluated by cardiology and had an ECHO read with an LVEF of 55% and unable to assess RSVP. - continue bumex 1.5mg daily - follow up with cardiology and pulmonology - Patient reported that she does not have portable oxygen at home and is on 3L NC at home. Needs to be set up with a portable oxygen tank once discharged from rehab. - continue home medications Patient had an episode of bright red blood per rectum likely secondary to internal hemorrhoids. H/H was stable prior to discharge. Allergies: Coded Allergies: Penicillins (ITCHING 07/15/15) Pertinent Lab Results: SERVICE DATE: 11/26/17 EXAM TYPE: RAD - XRY-PORTABLE CHEST XRAY EXAMINATION: XR PORTABLE CHEST CLINICAL INFORMATION: Shortness of breath and hypoxia. COMPARISON: 05/19/2017 TECHNIQUE: Portable AP 80 degrees upright view of the chest was obtained. FINDINGS: The cardiac silhouette is enlarged. There is unchanged elevation of the right hemidiaphragm. Lungs and pleural spaces are clear aside from minor linear atelectasis at the right base. IMPRESSION: No acute pulmonary process is seen. SERVICE DATE: 11/29/17 EXAM TYPE: CARD - ECHOCARDIOGRAM FINDINGS Left Ventricle Left ventricular cavity size normal. Left ventricular wall thickness mildly increased. No obvious regional wall motion abnormalities. Left ventricular ejection fraction is estimated at > 55 %. Right Ventricle Normal right ventricular size and function. Right Atrium Normal right atrial size. Left Atrium Mild left atrial dilatation. Mitral Valve Mild mitral annular calcification. Trace to mild mitral regurgitation. Aortic Valve Trace aortic regurgitation. Trileaflet aortic valve. No aortic valve stenosis. Tricuspid Valve Structurally normal tricuspid valve. Mild tricuspid regurgitation. Unable to estimate the right ventricular systolic pressure. Pulmonic Valve Pulmonic valve not well visualized, grossly normal. Pericardium No pericardial effusion. Great Vessels Normal size aortic root. CONCLUSIONS Left ventricular cavity size normal. Left ventricular wall thickness mildly increased. No obvious regional wall motion abnormalities. Left ventricular ejection fraction is estimated at > 55 %. Normal right ventricular size and function. Mild left atrial dilatation. Unable to estimate the right ventricular systolic pressure. No pericardial effusion. Nelson Austin M.D. (Electronically Signed) Final Date: 01 December 2017 09:55 MEASUREMENTS (Male / Female) Normal Values 2D ECHO LV Diastolic Diameter PLAX 4.8 cm 4.2 - 5.9 / 3.9 - 5.3 cm LV Systolic Diameter PLAX 2.3 cm 2.1 - 4.0 cm LV Fractional Shortening PLAX 52.1 % 25 - 46 % LV Ejection Fraction 2D Teich 83.1 % IVS Diastolic Thickness 1.2 cm LVPW Diastolic Thickness 1.2 cm LV Relative Wall Thickness 0.5 RV Internal Dim ED PLAX 3.0 cm 1.9 - 3.8 cm LVOT Diameter 1.9 cm Aortic Root Diameter 2.9 cm LA Systolic Diameter LX 4.1 cm 3.0 - 4.0 / 2.7 - 3.8 cm LA Volume 48.0 cm 18 - 58 / 22 - 52 cm Ascending Aorta Diameter 3.3 cm DOPPLER AV Peak Velocity 154.0 cm/s AV Peak Gradient 9.5 mmHg AV Mean Velocity 119.0 cm/s AV Mean Gradient 6.0 mmHg AV Velocity Time Integral 30.7 cm LVOT Peak Velocity 94.0 cm/s LVOT Peak Gradient 3.5 mmHg LVOT Mean Velocity 62.4 cm/s LVOT Mean Gradient 2.0 mmHg LVOT Velocity Time Integral 18.5 cm LVOT Stroke Volume 52.5 cm AV Area Cont Eq vti 1.7 cm AV Area Cont Eq pk 1.7 cm MV Peak Velocity 93.1 cm/s MV Peak Gradient 3.5 mmHg MV Mean Velocity 52.0 cm/s MV Mean Gradient 1.0 mmHg Mitral E Point Velocity 90.3 cm/s MV PHT Velocity 97.1 cm/s MV Deceleration [place] 477.0 cm/s MV Pressure Half Time 61.1 ms MV Area PHT 3.6 cm MV Deceleration Time 204.0 ms TR Peak Velocity 262.0 cm/s TR Peak Gradient 27.5 mmHg Right Atrial Pressure 5.0 mmHg Pulmonary Artery Systolic Pressure 32.5 mmHg Right Ventricular Systolic Pressure 32.5 mmHg PV Peak Velocity 79.5 cm/s PV Peak Gradient 2.5 mmHg PV Mean Velocity 57.1 cm/s PV Mean Gradient 1.0 mmHg PV Velocity Time Integral 15.6 cm LV E' Lateral Velocity 16.2 cm/s Mitral E to LV E' Lateral Ratio 5.6 LV E' Septal Velocity 12.5 cm/s Mitral E to LV E' Septal Ratio 7.2 Disposition Summary Disposition Principal Diagnosis: Acute on chronic hypoxic respiratory failure Additional Diagnosis: COPD Exacerbation, Fluid Overload 2/2 Noncomplicance, Cor Pulmonale Discharge Disposition: SNF Discharge Instructions General Discharge Information Code Status: Do Not Resucitate/Intubat Patient's Diet: Diabetic diet Patient's Activity: Self-Limited Follow-Up Instructions/Appts: Please follow up with your ldr rn, physical therapy aid and pcp within 1 week of discharge Please note that your diuretic has been changed from lasix to bumex. Please take as prescribed Patient needs a portable home oxygen device set up Medications at Discharge Discharge Medications: Stop taking the following medications: Furosemide (Lasix) 20 MG TABLET ORAL See Instructions Furosemide (Lasix) 20 MG TABLET ORAL See Instructions Aspirin (Ecotrin*) 325 MG TABLET.DR ORAL as needed for PAIN Continue taking these medications: Apixaban (Eliquis) 5 MG TABLET 1 Tablet ORAL TWICE DAILY Comments: Last Taken: 12/01/17 Time: 903 Metoprolol Tartrate (Metoprolol Tartrate) 25 MG TABLET 1 Tablet ORAL TWICE DAILY Comments: Last Taken: 12/01/17 Time: 902 Nitroglycerin (Nitroglycerin) 0.4 MG TAB.SUBL 1 Tablet SUBLINGUAL As Directed as needed for CHEST PAIN Instructions: 1st sign of attack; may repeat every 5 minutes until relief; if pain persists after 3 tablets in 15 minutes, prompt medical att Comments: NOT GIVEN THIS ADMISSION Diltiazem HCl (Diltiazem 24HR ER) 180 MG CAP.ER.24H 1 Capsule ORAL DAILY Comments: Last Taken: 12/01/2017 Time: 09 Trazodone HCl (Trazodone HCl) 100 MG TABLET 1 Tablet ORAL TAKE AT BEDTIME Comments: Last Taken: 11/30/17 Time: 2123 Olanzapine (Zyprexa) 5 MG TABLET 1 Tablet ORAL DAILY Comments: Last Taken: 12/01/17 Time: 903 Pantoprazole Sodium (Pantoprazole Sodium) 40 MG TABLET.DR 1 Tablet ORAL 929 Glipizide (Glipizide ER) 5 MG TAB.ER.24 1 Tablet ORAL DAILY Comments: NOT GIVEN THIS ADMISSION Sitagliptin Phos/Metformin HCl (Janumet 50-1,000 MG Tablet) 50 MG-1,000 MG TABLET 1 Tablet ORAL TWICE DAILY Comments: NOT GIVEN THIS ADMISSION Hydrocodone/Acetaminophen (Hydrocodon-Acetaminoph 7.5-325) 7.5 MG-325 MG TABLET 1 Tablet ORAL Q6H as needed for PAIN Comments: NOT GIVEN THIS ADMISSION Pravastatin Sodium (Pravachol) 20 MG TABLET 1 Tablet ORAL DAILY Comments: Last Taken: 12/01/17 Time: 09 Linaclotide (Linzess) 72 MCG CAPSULE 1 Capsule ORAL DAILY Comments: Last Taken: 12/01/17 Time: 06 Ipratropium/Albuterol Sulfate (Iprat-Albut 0.5-3(2.5) MG/3 Ml) 0.5 MG-3 MG (2.5 MG BASE)/3 ML AMPUL.NEB 1 VIAL Inhale through mouth TWICE DAILY Comments: Last Taken: 12/01/17 Time: 08 Aspirin (Ecotrin*) 81 MG TABLET.DR 1 Tablet ORAL as needed for PAIN Comments: Last Taken: 12/01/2017 Time: 903 Calcium Citrate (Calcium Citrate) (Unknown Strength) TABLET 630 Milligram ORAL Every Morning Comments: Last Taken: 12/01/2017 Time: 09 Ibuprofen (Advil) 200 MG CAPSULE 1 Tablet ORAL as needed for PAIN Comments: NOT GIVEN THIS ADMISSION Multivitamin (Multi-Vitamin Daily) 1 EACH TABLET 1 Tablet ORAL DAILY Instructions: Last Taken: 12/01/17 Time: 902 Magnesium Oxide (Magnesium) 250 MG TABLET 1 Tablet ORAL DAILY @8 AM Comments: Last Taken: 12/01/17 Time: 09 Start taking the following new medications: Bumetanide (Bumetanide) 0.5 MG TABLET 3 Tablet ORAL DAILY Qty = 90 No Refills Comments: NOT GIVEN IN HOSPITAL Copies To: Jenelle CAMPOS,Raimundo Manzo Attending MD Review Statement Documenting Attending: Bernard Thurston MD Other Findings: The patient was seen and discussed with house staff, nursing, and case management. Clinically improving. I/O's not negative since switching to po Lasix. Will change to Bumex which is more bioavailable and will titrate at STR. Will need to monitor daily weights. The patient will also need to get portable oxygen at home when out of STR. Some rectal bleeding due to known internal hemorrhoids. The patient states this is common for her. H/H is stable. Will monitor at STR.
--- NOTE | 2017-11-30 21:43 | Patient Discharge Instructions ---
Discharge Instructions General Discharge Information You were seen/treated for: Fluid Overload COPD Special Instructions: Please follow up with your tool maker apprentice, roller leveler and pcp within 1 week of discharge Please note that your diuretic has been changed from lasix to bumex. Please take as prescribed. Diet Continue normal diet: No Recommended Diet: Diabetic Activity Full Activity/No Limits: No Activity Self Limited: Yes Acute Coronary Syndrome Inclusion Criteria At DC or during hospital stay patient has or had the following: ACS DIAGNOSIS No Discharge Core Measures Meds if any: Prescribed or Continued at Discharge Meds if any: NOT Prescribed or Continued at Discharge Congestive Heart Failure Inclusion Criteria At DC or during hospital stay patient has or had the following: CHF DIAGNOSIS No Discharge Core Measures Meds if any: Prescribed or Continued at Discharge Meds if any: NOT Prescribed or Continued at Discharge Cerebrovascular accident Inclusion Criteria At DC or during hospital stay patient has or had the following: CVA/TIA Diagnosis No Discharge Core Measures Meds if any: Prescribed or Continued at Discharge Meds if any: NOT Prescribed or Continued at Discharge Venous thromboembolism Inclusion Criteria VTE Diagnosis No VTE Type NONE VTE Confirmed by (Test) NONE Discharge Core Measures - Per Current guidelines, there needs to be overlap - treatment for the first 5 days of Warfarin therapy. - If discharged on Warfarin prior to 5 days of - overlap therapy, the patient will need to be - assessed for post discharge needs including - *Post discharge parental anticoagulation - *Warfarin and/or parental anticoagulation education - *Follow up date to check INR post discharge At least 5 days overlap therapy as Inpatient No Meds if any: Prescribed or Continued at Discharge Note: Overlap Therapy is Warfarin and Anticoagulant Meds if any: NOT Prescribed or Continued at Discharge
[2017-11-30 21:47] VITALS: BP 118/66
--- NOTE | 2017-12-01 06:38 | PN- Housestaff ---
See Addendum Subjective Follow-up For: COPD exacerbation Acute on chronic hypoxemic respiratory failure Subjective: I visited the patient in the morning, she was complaining about frequent urination during the night, almost once per hour which disturbs her sleep. She states that she feels better regarding her respiration. Review of Systems Constitutional: Reports: see HPI. Objective Last 24 Hrs of Vital Signs/I&O Vital Signs Date Time Temp Pulse Resp B/P B/P Pulse O2 O2 Flow FiO2 Mean Ox Delivery Rate 12/01 0648 97.9 74 20 160/90 94 12/01 0000 Nasal 3.0L Cannula 11/30 2147 97.8 81 18 118/66 94 Nasal 3.0L Cannula 11/30 2125 81 118/66 11/30 1600 92 Nasal 3.0L Cannula 11/30 1418 97.7 80 20 144/89 92 Nasal 3.0L Cannula 11/30 0915 76 130/72 11/30 0809 93 Nasal 3.0L Cannula 11/30 0800 91 Nasal 3.0L Cannula Intake & Output 12/01 0800 12/01 0000 11/30 1600 Intake Total 240 410 800 Output Total 200 450 400 Balance 40 -40 400 Intake, IV 10 Intake, Oral 240 400 800 Number 0 Bowel Movements Output, Urine 200 450 400 Patient 246 lb Weight Physical Exam General Appearance: Alert, Oriented X3, Cooperative, No Acute Distress Skin: No Rashes Skin Temp/Moisture Exam: Warm/Dry Sepsis Skin Exam (color): Normal for Ethnicity HEENT: Atraumatic Neck: Supple Cardiovascular: Regular Rate, Normal S1, Normal S2 Lungs: Right sided wheezes improved comparing to yesterday Abdomen: Normal Bowel Sounds, Soft Neurological: Normal Speech Assessment/Plan Assessment: An 82-year-old woman with past history significant for A. fib, COPD on home O2, DM, came to the hospital with chief complaint of COPD exacerbation, pulmonary exacerbation. She had fluid balance of 840cc. Weight gain of one Ib. She had one episode of minimal rectal bleeding due to internal hemorrhoids which she reports that has happened prior to admission as well we will recheck CBC and once we get reassuring results back she can be transferred to [facility] later today. She did not have portable oxygen at home when she was admitted although she was on oxygen, she will needed once she is discharged from hospital. Farm Specialist as the patient today she is discharged from their standpoint, also from pulmonology standpoint. COPD exacerbation: The patient has clinically improved. Plan: We will continue with TCR and nebulizers. Acute on chronic hypoxic respiratory failure: Bedside pulse oximetry showed 92% Plan: We will continue oxygen with nasal cannula Cor pulmonale: She had a 1 pound weight loss since yesterday. and a fluid balance of 840 cc. Plan: We will follow-up intakes and outputs and daily weights, she did get p.o. Lasix in the morning on the avoid frequent urination during the night and improve her sleep. Echo report is out, and EF is 55% without CHF. Lasix will be changed to acetalozomide. Hypomagnesemia: We repeated with magnesium, her magnesium level is back to normal. Plan: We will continue to monitor serum level. GERD: Plan: She is taking proton pump inhibitor (omeprazole) Hyperlipidemia: Plan: She is taking pravastatin as she was before. Diabetes mellitus type 2: Her blood sugar is controlled with sliding scale protocol. Plan: We will check blood sugar and control with based on sliding scale. She will be back to her p.o. medication for diabetes once discharged. Problem List: 1. Acute respiratory failure with hypoxia 2. COPD exacerbation 3. Diabetes 4. Renal neoplasm Pain Ratin Pain Location: 0 Pain Goal: Remain pain free Pain Plan: na Tomorrow's Labs & Rationales: bisi
[2017-12-01 06:48] VITALS: BP 160/90
--- NOTE | 2017-12-01 09:57 | ECHOCARDIOGRAM REPORT ---
MENDEZ FELIX Age: 82 : 1935 Gender: F Exam Date: 11/30/2017 16:26 Exam Location: [address] [place] [address] Ht (in): 62 Wt (lb): 244 BSA: 2.27 BP: 144 / 89 Ordering Physician: Fredy Obrien MD Referring Physician: Nelson Austin M.D. Technologist: Zohra Fowler [facility] Room Number: 203 Indications: Heart failure Rhythm: Technical Quality: Fair FINDINGS Left Ventricle Left ventricular cavity size normal. Left ventricular wall thickness mildly increased. No obvious regional wall motion abnormalities. Left ventricular ejection fraction is estimated at > 55 %. Right Ventricle Normal right ventricular size and function. Right Atrium Normal right atrial size. Left Atrium Mild left atrial dilatation. Mitral Valve Mild mitral annular calcification. Trace to mild mitral regurgitation. Aortic Valve Trace aortic regurgitation. Trileaflet aortic valve. No aortic valve stenosis. Tricuspid Valve Structurally normal tricuspid valve. Mild tricuspid regurgitation. Unable to estimate the right ventricular systolic pressure. Pulmonic Valve Pulmonic valve not well visualized, grossly normal. Pericardium No pericardial effusion. Great Vessels Normal size aortic root. CONCLUSIONS Left ventricular cavity size normal. Left ventricular wall thickness mildly increased. No obvious regional wall motion abnormalities. Left ventricular ejection fraction is estimated at > 55 %. Normal right ventricular size and function. Mild left atrial dilatation. Unable to estimate the right ventricular systolic pressure. No pericardial effusion. Nelson Austin M.D. (Electronically Signed) Final Date: 01 December 2017 09:55 MEASUREMENTS (Male / Female) Normal Values 2D ECHO LV Diastolic Diameter PLAX 4.8 cm 4.2 - 5.9 / 3.9 - 5.3 cm LV Systolic Diameter PLAX 2.3 cm 2.1 - 4.0 cm LV Fractional Shortening PLAX 52.1 % 25 - 46 % LV Ejection Fraction 2D Teich 83.1 % IVS Diastolic Thickness 1.2 cm LVPW Diastolic Thickness 1.2 cm LV Relative Wall Thickness 0.5 RV Internal Dim ED PLAX 3.0 cm 1.9 - 3.8 cm LVOT Diameter 1.9 cm Aortic Root Diameter 2.9 cm LA Systolic Diameter LX 4.1 cm 3.0 - 4.0 / 2.7 - 3.8 cm LA Volume 48.0 cm 18 - 58 / 22 - 52 cm Ascending Aorta Diameter 3.3 cm DOPPLER AV Peak Velocity 154.0 cm/s AV Peak Gradient 9.5 mmHg AV Mean Velocity 119.0 cm/s AV Mean Gradient 6.0 mmHg AV Velocity Time Integral 30.7 cm LVOT Peak Velocity 94.0 cm/s LVOT Peak Gradient 3.5 mmHg LVOT Mean Velocity 62.4 cm/s LVOT Mean Gradient 2.0 mmHg LVOT Velocity Time Integral 18.5 cm LVOT Stroke Volume 52.5 cm AV Area Cont Eq vti 1.7 cm AV Area Cont Eq pk 1.7 cm MV Peak Velocity 93.1 cm/s MV Peak Gradient 3.5 mmHg MV Mean Velocity 52.0 cm/s MV Mean Gradient 1.0 mmHg Mitral E Point Velocity 90.3 cm/s MV PHT Velocity 97.1 cm/s MV Deceleration [place] 477.0 cm/s MV Pressure Half Time 61.1 ms MV Area PHT 3.6 cm MV Deceleration Time 204.0 ms TR Peak Velocity 262.0 cm/s TR Peak Gradient 27.5 mmHg Right Atrial Pressure 5.0 mmHg Pulmonary Artery Systolic Pressure 32.5 mmHg Right Ventricular Systolic Pressure 32.5 mmHg PV Peak Velocity 79.5 cm/s PV Peak Gradient 2.5 mmHg PV Mean Velocity 57.1 cm/s PV Mean Gradient 1.0 mmHg PV Velocity Time Integral 15.6 cm LV E' Lateral Velocity 16.2 cm/s Mitral E to LV E' Lateral Ratio 5.6 LV E' Septal Velocity 12.5 cm/s Mitral E to LV E' Septal Ratio 7.2
[2017-12-01 11:17] LABS: ABSOLUTE BASOPHIL COUNT 0 /CUMM (0.0-0.2); ABSOLUTE EOSINOPHIL COUNT 0.1 /CUMM (0.0-0.7); ABSOLUTE GRANULOCYTE CT 4.7 /CUMM (1.4-6.5); ABSOLUTE LYMPH COUNT 1.1 /CUMM (1.2-3.4); ABSOLUTE MONOCYTE COUNT 0.6 /CUMM (0.10-0.60); BASOPHIL % 0.1 % (0.0-2.0); EOSINOPHIL % 1.2 % (0-5); GRANULOCYTE % 72.6 % (42.2-75.2); HEMATOCRIT 36.3 % (37-47); MEAN CORPUSCULAR HGB 29.7 PG (27.0-31.0); MEAN CORPUSCULAR HGB CONC 33.9 G/DL (33.0-37.0); MEAN CORPUSCULAR VOLUME 87.6 FL (81.0-99.0); MEAN PLATELET VOLUME 7.8 FL (7.4-10.4); PLATELET COUNT 164 /CUMM (130-400); RBC DISTRIBUTION WIDTH 15.1 % (11.5-14.5); RED BLOOD CELL CT 4.15 /CUMM (4.20-5.40); WHITE BLOOD CELL COUNT 6.5 /CUMM (4.8-10.8)
--- NOTE | 2017-12-01 12:11 | PN- Cardiology ---
Subjective Subjective: Patient reports some fatigue but otherwise no new complaints. Objective Vital Signs and I&Os Vital Signs Date Time Temp Pulse Resp B/P B/P Pulse O2 O2 Flow FiO2 Mean Ox Delivery Rate 12/01 902 76 110/68 12/01 0841 93 Nasal 3.0L Cannula 12/01 0800 Nasal 3.0L Cannula 12/01 0648 97.9 74 20 160/90 94 12/01 0000 Nasal 3.0L Cannula 11/30 2147 97.8 81 18 118/66 94 Nasal 3.0L Cannula 11/30 2125 81 118/66 11/30 1600 92 Nasal 3.0L Cannula 11/30 1418 97.7 80 20 144/89 92 Nasal 3.0L Cannula Intake & Output 12/01 0812/01 0000 11/30 1600 11/30 0811/30 0000 Intake Total 240 410 800 480 480 Output Total 200 450 400 430 Balance 40 -40 400 480 50 Intake, IV 10 Intake, Oral 240 400 800 480 480 Number 0 Bowel Movements Output, Stool 30 Output, Urine 200 450 400 400 Patient 246 lb 249 lb Weight Weight Bed scale Measurement Method Physical Exam: General: no apparent distress. Alert. Overweight. On nasal cannula oxygen Eyes: No obvious scleral icterus. HEENT: No jugular venous distention or abnormal jugular venous pulsations. Cardiovascular: Normal intensity S1/S2. Irregular Respiratory: Lungs clear to auscultation bilaterally. Abdomen: Soft, nontender with no guarding or rebound tenderness. Musculoskeletal: No clubbing or cyanosis noted; trace edema Skin: warm Neurologic: No gross focal deficits noted Current Medications: Current Medications Sig/Kevin Start time Last Medication Dose Route Stop Time Status Admin Acetaminophen 650 MG Q6P PRN 11/26 1300 AC PO Albuterol Sulfate 3 ML TID 11/26 2100 AC 12/01 INH 0840 Apixaban 5 MG BID 11/26 2100 AC 12/01 PO 09 Aspirin Buffered 81 MG DAILY 11/27 899 AC 12/01 PO 09 Azithromycin 250 MG DAILY 11/27 899 DC 12/01 PO 08 Calcium/Vitamin D 500 MG DAILY 11/27 899 AC 12/01 PO 09 Diltiazem HCl 180 MG DAILY 11/27 899 AC 12/01 PO 09 Furosemide 60 MG DAILY 11/30 899 AC 12/01 PO 902 Hydrocodone Bitart/ 1 TAB Q6P PRN 11/26 1300 AC Acetaminophen PO Insulin Aspart 0 AT BEDTIME 12/01 2100 DC SC Insulin Aspart 0 AT BEDTIME 11/30 2129 AC 11/30 SC 2142 Insulin Aspart 0 TIDAC 11/26 1700 AC 12/01 SC 1159 Insulin Detemir 10 UNITS BID 11/28 2100 AC 12/01 SC 0904 Ipratropium [place] 2.5 ML TID 11/26 2100 AC 12/01 INH 0841 Linaclotide 145 MCG DAILY@0600 11/27 0600 AC 12/01 PO 0612 Magnesium Oxide 400 MG DAILY 11/27 0900 AC 12/01 PO 0903 Metoprolol Tartrate 25 MG BID 11/26 2100 AC 12/01 PO 0903 Multivitamins 1 TAB DAILY 11/27 0900 AC 12/01 Therapeutic PO 0903 Nitroglycerin 0.4 MG .EVERY 5 MIN PRN 11/26 1300 AC SL Olanzapine 5 MG DAILY 11/27 09 AC 12/01 PO 0904 Omeprazole 40 MG DAILY AC 11/27 0700 AC 12/01 PO 0612 Patient Medication 1 ED ONE ONE 11/30 1430 DC 11/30 Teaching ED 11/30 1431 1433 Pravastatin Sodium 20 MG DAILY 11/27 0900 AC 12/01 PO 0903 Psyllium Hydrophilic 1 PAC DAILY NEEDED 11/29 1600 AC 11/29 Mucilloid PO 170 Trazodone HCl 100 MG AT BEDTIME 11/26 2099 AC 11/30 PO 2124 Results Last 48 Hrs of Labs/Mics: Laboratory Tests 12/01/17 1055: CBC w Diff NO MAN DIFF REQ, RBC 4.15 L, MCV 87.6, MCH 29.7, MCHC 33.9, RDW 15.1 H, MPV 7.8, Gran % 72.6, Lymphocytes % 17.4 L, Monocytes % 8.7, Eosinophils % 1.2, Basophils % 0.1, Absolute Granulocytes 4.7, Absolute Lymphocytes 1.1 L, Absolute Monocytes 0.6, Absolute Eosinophils 0.1, Absolute Basophils 0 11/30/17 0615: Anion Gap 6, Estimated GFR 60, BUN/Creatinine Ratio 34.4 H Recent Imaging Studies: Echocardiogram Left ventricular cavity size normal. Left ventricular wall thickness mildly increased. No obvious regional wall motion abnormalities. Left ventricular ejection fraction is estimated at > 55 %. Normal right ventricular size and function. Mild left atrial dilatation. Unable to estimate the right ventricular systolic pressure. No pericardial effusion. Nelson Austin M.D. (Electronically Signed) Final Date: 01 December 2017 09:55 Assessment/Plan Assessment/Plan 1. Multifactorial shortness of breath likely with a component of volume overload in the setting of noncompliance with Lasix 2. History of oxygen dependent COPD/restrictive lung disease 3. Persistent atrial fibrillation on chronic anticoagulation 4. Chronic lower extremity edema 5. History of hypertension/hyperlipidemia 6. Obesity Patient is doing well. Echocardiogram as above confirms normal biventricular function. Continue on oral diuretic. Hemoglobin remains stable on twice daily Eliquis. Blood pressure is well controlled. She is stable for discharge from a cardiac standpoint and should follow-up in our office after discharge. Gurdeep Austin MD [facility] Continue telemetry? Not applicable
--- NOTE | 2017-12-01 13:37 | PN- Pulmonary ---
Subjective HPI/Critical Care Issues: Patient reports some fatigue but otherwise no new complaints. Objective Current Medications: Current Medications Sig/Kevin Start time Last Medication Dose Route Stop Time Status Admin Acetaminophen 650 MG Q6P PRN 11/26 1300 AC PO Albuterol Sulfate 3 ML TID 11/26 2100 AC 12/01 INH 0840 Apixaban 5 MG BID 11/26 2100 AC 12/01 PO 0904 Aspirin Buffered 81 MG DAILY 11/27 899 AC 12/01 PO 0904 Azithromycin 250 MG DAILY 11/27 09 DC 12/01 PO 0857 Calcium/Vitamin D 500 MG DAILY 11/27 899 AC 12/01 PO 0903 Diltiazem HCl 180 MG DAILY 11/27 899 AC 12/01 PO 0904 Furosemide 60 MG DAILY 11/30 899 AC 12/01 PO 0903 Hydrocodone Bitart/ 1 TAB Q6P PRN 11/26 1300 AC Acetaminophen PO Insulin Aspart 0 AT BEDTIME 12/01 2100 DC SC Insulin Aspart 0 AT BEDTIME 11/309 AC 11/30 SC 2142 Insulin Aspart 0 TIDAC 11/26 1700 AC 12/01 SC 1159 Insulin Detemir 10 UNITS BID 11/28 2100 AC 12/01 SC 0904 Ipratropium [place] 2.5 ML TID 11/26 2100 AC 12/01 INH 0841 Linaclotide 145 MCG DAILY@0600 11/27 0600 AC 12/01 PO 0612 Magnesium Oxide 400 MG DAILY 11/27 09 AC 12/01 PO 0903 Metoprolol Tartrate 25 MG BID 11/26 2100 AC 12/01 PO 0903 Multivitamins 1 TAB DAILY 11/27 899 AC 12/01 Therapeutic PO 0903 Nitroglycerin 0.4 MG .EVERY 5 MIN PRN 11/26 1300 AC SL Olanzapine 5 MG DAILY 11/27 09 AC 12/01 PO 0904 Omeprazole 40 MG DAILY AC 11/27 07 AC 12/01 PO 0612 Patient Medication 1 ED ONE ONE 11/30 1430 DC 11/30 Teaching ED 11/30 1431 1433 Pravastatin Sodium 20 MG DAILY 11/27 0900 AC 12/01 PO 0903 Psyllium Hydrophilic 1 PAC DAILY NEEDED 11/29 1600 AC 11/29 Mucilloid PO 1706 Trazodone HCl 100 MG AT BEDTIME 11/26 2100 AC 11/30 PO 212 Vital Signs & I&O Last 24 Hrs of Vitals and I&O: Vital Signs Date Time Temp Pulse Resp B/P B/P Pulse O2 O2 Flow FiO2 Mean Ox Delivery Rate 12/01 0903 76 110/68 12/01 0841 93 Nasal 3.0L Cannula 12/01 08 Nasal 3.0L Cannula 12/01 0648 97.9 74 20 160/90 94 12/01 0000 Nasal 3.0L Cannula 11/30 2147 97.8 81 18 118/66 94 Nasal 3.0L Cannula 11/30 2125 81 118/66 11/30 1600 92 Nasal 3.0L Cannula 11/30 1418 97.7 80 20 144/89 92 Nasal 3.0L Cannula Intake & Output 12/01 1600 12/01 0800 12/01 0000 Intake Total 240 240 410 Output Total 150 200 450 Balance 90 40 -40 Intake, IV 10 Intake, Oral 240 240 400 Number 0 Bowel Movements Output, Urine 150 200 450 Patient 246 lb Weight Laboratory Tests 12/01 11/30 1055 0615 Chemistry Sodium (137 - 145 mmol/L) 136 L Potassium (3.5 - 5.1 mmol/L) 3.7 Chloride (98 - 107 mmol/L) 91 L Carbon Dioxide (22 - 30 mmol/L) 39 H Anion Gap (5 - 16) 6 BUN (7 - 17 mg/dL) 31 H Creatinine (0.5 - 1.0 mg/dL) 0.9 Estimated GFR (>60 ml/min) 60 BUN/Creatinine Ratio (7 - 25 %) 34.4 H Hematology CBC w Diff NO MAN DIFF REQ WBC (4.8 - 10.8 /CUMM) 6.5 RBC (4.20 - 5.40 /CUMM) 4.15 L Hgb (12.0 - 16.0 G/DL) 12.3 Hct (37 - 47 %) 36.3 L MCV (81.0 - 99.0 FL) 87.6 MCH (27.0 - 31.0 PG) 29.7 MCHC (33.0 - 37.0 G/DL) 33.9 RDW (11.5 - 14.5 %) 15.1 H Plt Count (130 - 400 /CUMM) 164 MPV (7.4 - 10.4 FL) 7.8 Gran % (42.2 - 75.2 %) 72.6 Lymphocytes % (20.5 - 51.1 %) 17.4 L Monocytes % (1.7 - 9.3 %) 8.7 Eosinophils % (0 - 5 %) 1.2 Basophils % (0.0 - 2.0 %) 0.1 Absolute Granulocytes (1.4 - 6.5 /CUMM) 4.7 Absolute Lymphocytes (1.2 - 3.4 /CUMM) 1.1 L Absolute Monocytes (0.10 - 0.60 /CUMM) 0.6 Absolute Eosinophils (0.0 - 0.7 /CUMM) 0.1 Absolute Basophils (0.0 - 0.2 /CUMM) 0 Impression/Plan Impression/Plan Impression/Plan: eneral Appearance Alert, Oriented X3, Cooperative, No Acute Distress Cardiovascular Regular Rate Lungs mild crackles Abdomen Normal Bowel Sounds, Soft, No Tenderness, ostomy site [id number] appearing Extremities nonpitting edema bilaterally Ms. Akins is an 82-year-old female with past medical history of atrial fibrillation on apixaban followed by Dr. Abdi, chronic obstructive and restrictive lung disease on 2.5 L nasal cannula, chronic rt middle lobe syndrome , Mild ILD, history of upper GI bleed, renal cell carcinoma, diabetes mellitus, and h/o stage 1 breast cancer who presents with complaints of shortness of breath, in the setting of stopping her lasix lately * Mod to severe copd with mild ild with chronic rt middle lobe syndrome, now with minimal wheezing today, and her recent deterioration is prob due to stopping her lasix. 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
[2017-12-01] MEDS ORDERED: BUMETANIDE0.5 M1 PO (13:50)
[2017-12-01 15:42] VITALS: BP 110/68
== END 2017-12-01 16:26 | DRG 190 ==
LOC: ERH 09:28 → 2NB 11:21 → ERHI 11:21 → ENRESERV 12:33 → ENTRNSPT 13:06 → EDTRNSPTSTS 13:19 → EDTRNSPT 13:19 → 2NB 13:38 → CMPTRNSPT 14:05 → 2NB 11-27 11:38
PROVIDERS: Internal Medicine; Physician Assistant Medical; Student in an Organized Health Care Education/Training Program
DX: J44.1 Chronic obstructive pulmonary disease with (acute) exacerbation (principal); J96.21 Acute and chronic respiratory failure with hypoxia; I48.1 Persistent atrial fibrillation; Z68.42 Body mass index [BMI] 45.0-49.9, adult; J84.9 Interstitial pulmonary disease, unspecified; J98.19 Other pulmonary collapse; E87.70 Fluid overload, unspecified; Z99.81 Dependence on supplemental oxygen; I27.81 Cor pulmonale (chronic); E11.9 Type 2 diabetes mellitus without complications; E83.42 Hypomagnesemia; M54.9 Dorsalgia, unspecified; Z66 Do not resuscitate; G89.4 Chronic pain syndrome; E78.5 Hyperlipidemia, unspecified; F41.9 Anxiety disorder, unspecified; E66.9 Obesity, unspecified; T50.1X6A Underdosing of loop [high-ceiling] diuretics, initial encounter; Z91.128 Patient's intentional underdosing of medication regimen for other reason; K64.8 Other hemorrhoids; I10 Essential (primary) hypertension; Z88.0 Allergy status to penicillin; Z93.3 Colostomy status; Z85.3 Personal history of malignant neoplasm of breast; Z79.01 Long term (current) use of anticoagulants; Z79.84 Long term (current) use of oral hypoglycemic drugs; Z85.528 Personal history of other malignant neoplasm of kidney; Z87.891 Personal history of nicotine dependence
CPT/HCPCS: 36415; 36592; 71045; 82436; 93005; 93010; 93306; 97116-GO; 97161-GP; J0456; J1940; J2920; J2930; J3490; J7512